=== PATIENT | male | born 1960 | race Caucasian/White ===

== ENCOUNTER 2018-07-03 18:34 | Inpatient (IN) ==
[2018-07-03] MEDS ORDERED: Naloxone 0.4 MG/ML INJ IVP PRN (22:53)
[2018-07-03] MEDS ORDERED: Acetaminophen 325 MG TABLET PO PRN (22:53)
[2018-07-03] MEDS ORDERED: *HR* Metoprolol 5 MG/5 ML VIAL IVP PRN (23:00)
[2018-07-03] MEDS ORDERED: traZODone 50 MG TABLET PO PRN (23:04)
[2018-07-03] MEDS ORDERED: *HR* LORazepam 2 MG/ML VIAL IVP PRN ×4 (23:12→23:23)
[2018-07-03] MEDS ORDERED: *HR* FentaNYL (PF) 100 MCG/2 ML VIAL IVP PRN (23:15)
--- NOTE | 2018-07-03 23:23 | Internal Med History&Physical ---
<Citlali Mendez - Last Filed: 07/04/18 01:07> Date of Encounter: 07/04/18 Time of Encounter: 23:15 Internal Medicine - H&P: HPI Chief complaint: nausea History of present illness: Mr. Poole is a 58 year old male with past medical history of insomnia, hypertension and alcohol abuse. He presented to to outside ED complaining of abdominal pain ongoing for the past 2 days. He reports 2 days ago he had a chicken sandwich in the next day he woke up with abdominal pain. He denies any change in his bowel habits and had a normal bowel movement this morning. He is complaining of nausea and decreased oral intake for the past 2 days with diffuse mild abdominal pain. He does report frequent urination, denies dysuria or incontinence. He reports daily alcohol intake of about 72 ounces of beer a day. She also reported drinking twice that amount on weekends. He denies any previous history of pancreatitis. He complained of cough which is chronic and unchanged for him and associated with his daily smoking. He denies any focal weakness and otherwise has no other complaints. An outside ED his sodium was noted to be 117 unsure of baseline as there are no labs to compare to. His white count was noted to be 13.8. No imaging were ordered. Past Med Surg Social Fam HX - Past Medical History Medical history: hypertension, other Additional medical history: bleeding ulcers Psychiatric history: no psych history - Past Surgical History Additional surgical history: Surgical intervention 10 years ago after a rib injury effecting the lungs - Social History Smoking Status: Current every day smoker Smokeless Tobacco Status: No Alcohol use: heavy, recent Drug use: none - Family History Mother Hx Family Endocrine Disorder: Yes (diabetes) Internal Medicine - H&P: Meds Lisinopril-HCTZ 20-12.5 [Prinzide 20-12.5] 1 tab PO BID 07/01/17 [History] Bismuth Subsalicylate [PEPTO-BISMOL (262mg/15mL) Susp] 1 each PO 5XD PRN 07/03/18 [History] Allergy/AdvReac Type Severity Reaction Status Date / Time No Known Allergies Allergy Verified 07/03/18 23:00 All Systems PM: A 10-system review of systems was performed and is negative for pertinent findings except as documented above in the HPI. - Constitutional Constitutional: chills, no fever(s), no malaise, no weakness - EENT Eyes: no change in vision, no loss of vision, no pain Nose, mouth and throat: no dysphagia, no nasal congestion, no odynophagia - Cardiovascular Cardiovascular ROS IM: no chest pain, no dyspnea, no dyspnea on exertion, no orthopnea, no paroxysmal nocturnal dyspnea - Respiratory Respiratory: cough (chronic, unchanged), no dyspnea, no dyspnea on exertion, no chest congestion - Gastrointestinal Gastrointestinal: abdominal pain, nausea, no constipation, no diarrhea, no dysphagia, no vomiting - Genitourinary Genitourinary ROS male: no dysuria, no hematuria, no urinary incontinence - Musculoskeletal Musculoskeletal ROS IM: back pain (chronic and unchanged), no numbness, no stiffness - Integumentary Integumentary IM: no erythema, no pruritus, no rash - Neurological Neurological ROS: no focal weakness, no numbness, no paresthesias, no vertigo - Psychiatric Psychiatric: no anxiety, no confusion, no depression - Endocrine Endocrine IM: cold intolerance, no fatigue, no flushing - Constitutional Vitals: Temp Pulse Resp BP Pulse Ox 98 F 89 14 159/104 99 07/03/18 22:25 07/03/18 23:00 07/03/18 23:00 07/03/18 23:00 07/03/18 23:00 Exam: Gen: Vitals noted. No acute distress. Appears comfortable. Eyes: Sclera icterus, moist conjunctivae; no lid-lag HENT: Atraumatic; oropharynx clear with moist mucous membranes and no mucosal ulcerations; normal hard and soft palate Neck: Trachea midline; supple, no thyromegaly or lymphadenopathy Cardiac: Regular rhythm with tachycardia, no murmur, +S1/S2. No JVD noted. Pulmonary: CTA bilaterally, no wheezes, rales or rhonchi, equal chest expansion Abdomen: soft, mild diffuse tenderness, no guarding. No masses or hepatosplenomegaly MSK: ROM intact, no joint swelling noted Extremities: no edema, nontender calf Skin: Normal temperature, turgor; no rash, ulcers or subcutaneous nodules Neuro: moves all extremities, no focal deficits. Psych: Appropriate mood and behavior. A&Ox3 Internal Med - H&P Results - Labs CBC & Chem 7: 07/03/18 23:38 - Assessment and Plan (1) Hyponatremia Current Visit: No Status: Acute Assessment and plan: Presented to the outside ED complaining of abdominal pain. Hyponatremia can be multifactorial given he is on lisinopril and HCTZ, vs beer potomania Noted to have sodium of 117, unknown baseline. Repeat BMP shows sodium of 129 No focal changes, Alert and oriented x3 Received 2.5 liters of normal saline at outside ED Repeat sodium upon admission is 129 -Clear liquid diet with 2 liter limitation -Hold home antihypertensives -Urine sodium and solutes pending -Repeat BMP in the morning (2) Pancreatitis Current Visit: No Status: Acute Assessment and plan: Concern for pancreatitis presented with abdominal pain, lipase noted to be 1800 outside facility Has mild abdominal pain at presentation to [facility] CT of the abdomen and pelvis pending -Ultrasound gallbladder pending -Lipids pending -Repeat amylase and lipase at 4 AM -Clear liquids at this time -If cannot tolerate clear liquids, nothing by mouth Qualifiers: Chronicity: acute Pancreatitis type: alcohol induced Acute pancreatitis complication: unspecified Qualified Code(s): K85.20 - Alcohol induced acute pancreatitis without necrosis or infection (3) Abdominal pain Current Visit: No Status: Acute Assessment and plan: Presented from outside ED complaining of abdominal pain onset on 07/02/18, could be secondary to acute pancreatitis. He reports eating a chicken sandwich on 07/01/18 consult nauseated thereafter. He has had decreased oral intake since the onset of nausea. Denies emesis or changes in bowel habits. At presentation to the outside ED lipase was noted to be 1800 -Nothing by mouth at this time -CT abdomen and pelvis pending -Lipids pending -Gallbladder ultrasound pending -Continue pain medication -Continue Zofran for nausea -Will hold antibiotics at this time depending on CT findings will make further recommendations Qualifiers: Abdominal location: generalized Qualified Code(s): R10.84 - Generalized abdominal pain (4) Insomnia Current Visit: Yes Status: Chronic Assessment and plan: Takes trazodone at home, will continue Qualifiers: Insomnia type: unspecified Qualified Code(s): G47.00 - Insomnia, unspecified (5) Hypertension Current Visit: Yes Status: Chronic Assessment and plan: History of hypertension at home takes lisinopril and hydrochlorothiazide Due to hyponatremia will hold home antihypertensives -Lopressor when necessary -We will need new antihypertensives on discharge, consider amlodipine Qualifiers: Hypertension type: essential hypertension Qualified Code(s): I10 - Essential (primary) hypertension (6) History of alcohol use Current Visit: Yes Status: Chronic Assessment and plan: History of alcohol use, reports drinking 72 ounces of beer daily and drinks twice that amount on weekends Drinking for the past 44 years Denies any previous history of pancreatitis or alcohol withdrawal -Alcohol withdrawal protocol ordered -Continue close monitoring (7) Tobacco use Current Visit: Yes Status: Acute Assessment and plan: Current every day smoker, smokes 1.5 pack per day [id number] history Hold nicotine at this time given tachycardia (8) DVT prophylaxis Current Visit: Yes Status: Acute Assessment and plan: Subcutaneous heparin - Time Spent With Patient Total time spent is greater than 50% in coordination of care (as documented) at patient's floor/unit and/or counseling patient: <Cl Scott - Last Filed: 07/04/18 03:23> Date of Encounter: 07/03/18 Time of Encounter: 23:45 - Constitutional Constitutional: no fever(s), no malaise, no night sweats - EENT Eyes: no blurry vision, no change in vision Ears: no ear pain Nose, mouth and throat: no sinus pressure, no sore throat - Cardiovascular Cardiovascular ROS IM: no chest pain, no dyspnea - Respiratory Respiratory: cough, no dyspnea, no hemoptysis, no chest congestion, no change in phlegm color - Gastrointestinal Gastrointestinal: abdominal pain, heartburn, nausea, no diarrhea, no hematemesis, no hematochezia, no melena, no vomiting - Genitourinary Genitourinary ROS male: no dysuria, no flank pain, no hematuria - Musculoskeletal Musculoskeletal ROS IM: no arthralgias - Integumentary Integumentary IM: no rash, no jaundice - Neurological Neurological ROS: no disequilibrium, no dizziness, no focal weakness, no frequent falls, no headache(s) - Psychiatric Psychiatric: no anxiety, no depression - Endocrine Endocrine IM: no polydipsia, no polyuria - Allergic/Immunologic Allergic/Immunologic: GI upset with certain foods - Constitutional Vitals: Temp Pulse Resp BP Pulse Ox 98.4 F 89 15 175/142 97 07/03/18 23:49 07/04/18 02:00 07/04/18 02:00 07/04/18 02:00 07/04/18 02:00 General appearance: Present: cooperative, A&O X 3, pleasant, no acute distress, answers questions appropriately - Head Head exam: Present: atraumatic, normal inspection - Eye Eye exam: Present: PERRL - ENT ENT exam: Present: mucous membranes dry, normal exam, normal oropharynx - Neck Neck exam general surgery: Present: full ROM, supple, trachea midline. Absent: lymphadenopathy, tenderness, nuchal rigidity, thyromegaly - Respiratory Respiratory exam: Present: prolonged expiratory phase, rhonchi. Absent: chest wall tenderness, rales, respiratory distress, wheezes - Cardiovascular Cardiovascular exam: Present: RRR, +S1, +S2. Absent: diastolic murmur, systolic murmur - GI/Abdominal GI/Abdominal exam: Present: hypoactive bowel sounds, soft, tenderness (epigastric), no peritoneal signs. Absent: guarding, hepatomegaly, mass, rebound, splenomegaly - Extremities Exam Extremities exam: Present: full ROM, normal capillary refill, warm, radial pulses palpable and symmetrical. Absent: calf tenderness, pedal edema, tenderness Additional comments: atrophy of muscles - Back Exam Back exam: Absent: CVA tenderness (L), CVA tenderness (R) - Neurological Exam Neurological exam: Present: alert, CN II-XII intact, oriented X3, no focal deficits, strengths equal and symetr throughout - Psychiatric Psychiatric exam: Present: normal affect, normal mood - Skin Skin exam: Present: dry, intact, warm Internal Med - H&P Results - Labs CBC & Chem 7: 07/03/18 23:38 Labs: BMP 07/03/18 23:38 Sodium 129 L D Potassium 3.7 Chloride 94 L Carbon Dioxide 27 BUN 4 L Creatinine 0.37 L Glucose 111 H Calcium 8.6 - Impressions ITS Impressions Abdomen/Pelvis CT 07/04/18 00:06 IMPRESSION: Paraduodenal (groove) pancreatitis with moderate surrounding peripancreatic inflammatory stranding, duodenal wall thickening, 3.8 cm acute peripancreatic fluid collection and mild common bile duct and pancreatic duct dilatation. 2.4 cm cyst at the pancreatic head is most suspicious for an intraductal papillary mucinous neoplasm (IPMN). Surrounding calcifications likely reflects sequela of chronic pancreatitis. (Very) heavy aortoiliac atherosclerotic calcifications with areas of severe luminal narrowing along the distal aorta and near complete versus complete luminal narrowing of the right common iliac artery. D/ / Eugene Helton / Eugene Helton Interpreting Provider: Eugene Helton - Time Spent With Patient Total time spent is greater than 50% in coordination of care (as documented) at patient's floor/unit and/or counseling patient: - Attending Attestation I discussed the patient COUNCIL, past medical history, review of systems, lab data, imaging data, and exam findings with Dr. Mendez. I then saw and examined patient independently in ICU as well. Patient was transferred to our ICU from [facility] ER for concerns of acute hyponatremia and pancreatitis. Prior to transfer, he received 3 L of IV fluids at [place] [facility]. Once he arrived to our ICU, Dr. Mendez stopped his IV fluids immediately. We wer e concerned about overcorrection of his hyponatremia. We repeated STAT labs and sodium is now 129, which was corrected rapidly. Presently, patient has no neurologic effects or side effects. His only complaint and issue is his epigastric pain. He does drink chronic and excessive alcohol. I suspect this is the culprit of his pancreatitis. However, he still has a gallbladder and he's had some food intolerance recently. We will monitor him closely in ICU and likely transition out of ICU if he remains stable. We will watch his chemistries closely. He will receive no more IV fluids and we will allow him to drink clear liquids sparingly if he can tolerate it from a GI standpoint. He will be maintained on CIWA protocol for possible alcohol withdrawal. Regarding his hyponatremia, he is on a thiazide diuretic, which can also be contributing to his hyponatremia. This will be withheld for now as well. Other than my comments above and documented exam findings, I agree with Dr. Mendez's assessment and plan.
[2018-07-03] MEDS ORDERED: Ondansetron 4 MG/2 ML VIAL IVP PRN (23:40)
[2018-07-04 00:06] LABS: Magnesium 1.8 mg/dL (1.6-2.6); Phosphorous 3.3 mg/dL (2.7-4.5)
[2018-07-04 00:11] LABS: BUN/Creatinine Ratio 11 (6-26); Blood Urea Nitrogen 4 mg/dL (6-20); Calcium 8.6 mg/dL (8.6-10.3); Carbon Dioxide 27 mEq/L (23-29); Chloride 94 mEq/L (98-107); Glucose 111 mg/dL (70-105); Osmolality,Calculated 266 (280-300); Potassium 3.7 mEq/L (3.5-5.1); Sodium 129 mEq/L (136-145); eGFR For Non-African Americans > 60 (> 60)
[2018-07-04] MEDS ORDERED: *HR* HYDROcodone/Acet 5/325 mg TABLET PO PRN (00:31)
[2018-07-04 06:09] LABS: Basophils # 0.1 K/mcL (0.0-0.2); Basophils % 0.6 %; Eosinophils # 0.7 K/mcL (0.0-0.6); Eosinophils % 5.8 %; Hematocrit 40.4 % (37.5-50.1); Hemoglobin 13.8 g/dL (12.9-16.9); Immature Granulocytes % 0.4 % (0-4); Lymphocytes # 1.5 K/mcL (0.6-4.6); Lymphocytes % 12.7 %; Mean Corpuscular HGB Conc 34.2 g/dL (31.6-35.5); Mean Corpuscular Hemoglobin 30.1 pg (28.0-33.3); Monocytes % 8.3 %; Neutrophils # 8.6 K/mcL (1.6-8.9); Platelet Count 238 K/mcL (140-400); Red Blood Count 4.59 M/mcL (4.19-5.50); Red Cell Distribution Width 13.5 % (11.5-14.5); Segmented Neutrophils % 72.2 %
[2018-07-04 06:34] LABS: Carbon Dioxide 23 mEq/L (23-29); Chloride 95 mEq/L (98-107); Potassium 3.2 mEq/L (3.5-5.1); Sodium 127 mEq/L (136-145)
[2018-07-04 06:43] LABS: Amylase 389 Units/L (29-103); BUN/Creatinine Ratio 14 (6-26); Blood Urea Nitrogen 5 mg/dL (6-20); Calcium 8.9 mg/dL (8.6-10.3); Chol/HDL Ratio 1.7 (0-4.9); Cholesterol 137 mg/dL (< 200); Glucose 88 mg/dL (70-105); HDL Cholesterol 81 mg/dL (40-59); LDL Cholesterol,Calculated 45 mg/dL (0-99); Magnesium 1.9 mg/dL (1.6-2.6); Osmolality,Calculated 261 (280-300); Thyroid Stimulating Hormone 5.465 mcIU/mL (0.340-5.600); Triglycerides 56 mg/dL (< 150); eGFR For Non-African Americans > 60 (> 60)
[2018-07-04 06:57] LABS: Lipase 1764 Units/L (11-82)
--- NOTE | 2018-07-04 07:37 | Event Note ---
Date of Encounter: 07/04/18 Time of Encounter: 07:35 I received sign out from night team regarding Mr Zulema. His sodium level 127 a overcorrection due to 3L NS he received at [place]. I have discussed with dr Nguyen of nephro. Pt requires cont stay in ICU, q1hr Na checks, 500 cc bolus D5W followed by 125 cc/hr to begin with. Goal Na level 121-123. Dr Dominguez on at 8 am and will be consulting on pt today. I have communicated plan to [employer] IN[employer]STIGATION UNIT INVESTIGATOR. Orders in place. q 4h neuro checks.
[2018-07-04] MEDS ORDERED: D5% in Water 1,000 ML IVC SCH ×2 (07:45→18:08)
[2018-07-04] MEDS ORDERED: D5% in Water 500 ML IVC SCH (07:45)
[2018-07-04] MEDS: *HR* HYDROcodone/Acet 5/325 mg TABLET PO PRN ×2 (07:56→21:18)
[2018-07-04] MEDS: *HR* Metoprolol 5 MG/5 ML VIAL IVP PRN ×2 (08:11→18:17)
--- NOTE | 2018-07-04 09:41 | Internal Med Progress Note ---
<Gerhard Lora - Last Filed: 07/04/18 09:41> Hospitalist Progress Note - Encounter Date of Encounter: 07/04/18 - Exam Vitals: Temp Pulse Resp BP Pulse Ox 97.9 F 80 14 139/92 97 07/04/18 09:05 07/04/18 09:00 07/04/18 09:00 07/04/18 09:00 07/04/18 09:00 - Time Spent with Patient Total time spent is greater than 50% in coordination of care (as documented) at patient's floor/unit and/or counseling patient: Internal Medicine: Result - Labs CBC & Chem 7: 07/04/18 05:38 07/04/18 07:58 Labs: Short CBC 07/04/18 Range/Units 05:38 WBC 12.0 H (4.3-11.1) K/mcL Hgb 13.8 (12.9-16.9) g/dL Hct 40.4 (37.5-50.1) % Plt Count 238 (140-400) K/mcL Neutrophils # 8.6 (1.6-8.9) K/mcL BMP 07/03/18 07/04/18 07/04/18 23:38 05:38 07:58 Sodium 129 L D 127 L 128 L Potassium 3.7 3.2 L Chloride 94 L 95 L Carbon Dioxide 27 23 BUN 4 L 5 L Creatinine 0.37 L 0.36 L Glucose 111 H 88 Calcium 8.6 8.9 - Impressions Impressions Abdomen/Pelvis CT 07/04/18 00:06 IMPRESSION: Paraduodenal (groove) pancreatitis with moderate surrounding peripancreatic inflammatory stranding, duodenal wall thickening, 3.8 cm acute peripancreatic fluid collection and mild common bile duct and pancreatic duct dilatation. A 2.4 cm cyst at the pancreatic head is most suspicious for an intraductal papillary mucinous neoplasm (IPMN). Surrounding calcifications likely reflects sequela of chronic pancreatitis. (Very) heavy aortoiliac atherosclerotic calcifications with areas of severe luminal narrowing along the distal aorta and near complete versus complete luminal narrowing of the right common iliac artery. D/ / 07/04/2018 07:09:27 Eugene Helton / [email or web address] Interpreting Provider: Eugene Helton Consult Discharge Plan - Plan Referrals: NONE,PCP [Primary Care Provider] - <Alexandra Watts - Last Filed: 07/04/18 12:13> Hospitalist Progress Note - Encounter Date of Encounter: 07/04/18 - Exam Vitals: Temp Pulse Resp BP Pulse Ox 97.7 F 82 20 148/122 99 07/04/18 11:40 07/04/18 11:00 07/04/18 11:00 07/04/18 11:00 07/04/18 11:00 - Time Spent with Patient Total time spent is greater than 50% in coordination of care (as documented) at patient's floor/unit and/or counseling patient: Internal Medicine: Result - Labs CBC & Chem 7: 07/04/18 05:38 07/04/18 09:15 Labs: Short CBC 07/04/18 Range/Units 05:38 WBC 12.0 H (4.3-11.1) K/mcL Hgb 13.8 (12.9-16.9) g/dL Hct 40.4 (37.5-50.1) % Plt Count 238 (140-400) K/mcL Neutrophils # 8.6 (1.6-8.9) K/mcL BMP 07/03/18 07/04/18 07/04/18 23:38 05:38 07:58 Sodium 129 L D 127 L 128 L Potassium 3.7 3.2 L Chloride 94 L 95 L Carbon Dioxide 27 23 BUN 4 L 5 L Creatinine 0.37 L 0.36 L Glucose 111 H 88 Calcium 8.6 8.9 07/04/18 09:15 Sodium 129 L Potassium Chloride Carbon Dioxide BUN Creatinine Glucose Calcium - Impressions Impressions Abdomen/Pelvis CT 07/04/18 00:06 IMPRESSION: Paraduodenal (groove) pancreatitis with moderate surrounding peripancreatic inflammatory stranding, duodenal wall thickening, 3.8 cm acute peripancreatic fluid collection and mild common bile duct and pancreatic duct dilatation. A 2.4 cm cyst at the pancreatic head is most suspicious for an intraductal papillary mucinous neoplasm (IPMN). Surrounding calcifications likely reflects sequela of chronic pancreatitis. (Very) heavy aortoiliac atherosclerotic calcifications with areas of severe luminal narrowing along the distal aorta and near complete versus complete luminal narrowing of the right common iliac artery. D/ / 07/04/2018 07:09:27 Eugene Helton / [email or web address] Interpreting Provider: Eugene Helton - Attending Attestation I examined this patient and my medical decision-making was reviewed with the Resident Physician Dr Lora. I agree with the documented findings, disposition and treatment plan as described except to the extent set forth below. Mr Poole is admitted with hyponatremia and pancreatitis. Awake, alert, resting in bed, no family present. He denies confusion, + fatigue, no weakness/numbness, headache or vision changes. Epigastric pain is non radiating and somewhat improved. no n/v/d. Deneis fevers or chills. no cough or sob. gen- alert, awake,appears stated age eyes- pupils equal round cv- reg rate and rhythm, normal s1,s2, no murmurs appreciated, no le edema lungs- ctabl, no wheezing, rhonchi or crackles, normal resp effort on room air abd- soft, tender episgastrium, no rigidity, no guarding, , non distended, + bs neuro- AAOx3, CN grossly intact, no focal deficits Hyponatremia, chornicity cannot be determined as no prior labs and pt unsure suspect acute on chronic hypovolemic-euvolemic hyponatremia multifactorial- medication HCTZ, insensible water loss sweating, intake of free water and beer Overcorrection of Sodium related to NS boluses he received prior to admission to this hospital -pt in icu as overflow as step down full -na 129 this morning, nephro consulted as noted in event note, cont D5W, serial q4h checks as d/w Dr Cuevas, goal Na 121-123 as soon as possible today, cont neuro checks -urine studies reviewed Leukocytosis suspect 2/2 pancreatitis -ua normal , cT a/p without findings in base of lungs and no s/s of resp infection at this time -cont pancreatitis treatment as below Pancreatitis, suspected etoh related -check rUQ US, cont IVFs, clears, GI following, prn pain control Hypokalemia- replete PO and monitor etoh abuse, not in withdrawal- cont tele, ciwa, PO supplementation as cannot give banana bag with NS at this time further diagnoses and plan as noted by resident to step down when bed available remains appropriate.
--- NOTE | 2018-07-04 11:17 | Nephrology Consult Note ---
Date of Encounter: 07/04/18 Time of Encounter: 09:00 Assessment and Plan (1) Hyponatremia Current Visit: No Status: Acute Multifactorial given he is on lisinopril and HCTZ at home vs beer potomania vs polydypsia. Na of 117 with overcorrection within 24 hr period to 129. Received 2.5 liters of normal saline at outside ED. No focal changes, Alert and oriented x3. Current Na of 127. Goal for today is Na level 121-123. - q4h neuro checks - Space Na checks to q4H. - Hold home antihypertensives. - Continue D5% 125 ml/hr. - If sodium goal continues to not be met, consider starting DDAVP. (2) Hypertension Current Visit: Yes Status: Chronic BP at 144/75. At home, takes lisinopril and hydrochlorothiazide - Due to hyponatremia, continue to hold home antihypertensives - Lopressor when necessary - Will need new antihypertensives on discharge. Consider amlodipine. Qualifiers: Hypertension type: essential hypertension Qualified Code(s): I10 - Essential (primary) hypertension (3) Pancreatitis Current Visit: No Status: Acute Qualifiers: Chronicity: acute Pancreatitis type: alcohol induced Acute pancreatitis complication: unspecified Qualified Code(s): K85.20 - Alcohol induced acute pancreatitis without necrosis or infection (4) History of alcohol use Current Visit: Yes Status: Chronic (5) Abdominal pain Current Visit: No Status: Acute Qualifiers: Abdominal location: generalized Qualified Code(s): R10.84 - Generalized abdominal pain (6) Tobacco use Current Visit: Yes Status: Acute History of Present Illness - Reason for Consult Consult date: 07/04/18 hyponatremia - Chief Complaint Abdominal Pain - History of Present Illness 58 YO M with a PMH of insomnia, hypertension and alcohol abuse who presented to an outside ED c/o abdominal pain for 2 days. He reports decreased PO intake. Admitting to nausea. Reports urinary frequency. Denies dysuria or incontinence. Alcohol intake of about 72 ounces of beer a day. Labs showed an elevated lipase of 1800 and elevated amylase concerning for pancreatitis. Abdominal CT showed cyst on pancreas suspicious for intraductal papillary mucinous neoplasm (IPMN) with surrounding calcifications likely reflects sequela of chronic pancreatitis. Neprhology consulted due to a presentation of a sodium of 117 (unknown baseline) at outside facilty. Repeat sodium upon admission was 129. His sodium level 127 was an overcorrection due to 3L NS he received at [place]. Received q1hr Na checks, 500 cc bolus D5W followed by 125 cc/hr to begin with. When seen this morning, patient says that he has had some issues with dehydration recently. As a results, he has been drinking alot of water continuously. He denies any focal weakness. Denies any chest pain or SOB. Denies any blurring of vision. He does admit to some abdominal discomfort that is diffuse. Denies any swelling in his LE. Past Med Surg Social Fam HX - Past Medical History Medical history: hypertension, other Additional medical history: bleeding ulcers , ETOH Psychiatric history: no psych history - Past Surgical History Additional surgical history: Surgical intervention 10 years ago after a rib injury effecting the lungs - Social History Smoking Status: Current every day smoker Packs per day: 7.5 Smokeless Tobacco Status: No Alcohol use: heavy, recent Drug use: none - Family History Mother Hx Family Endocrine Disorder: Yes (diabetes) Medications and Allergies Lisinopril-HCTZ 20-12.5 [Prinzide 20-12.5] 1 tab PO BID 07/01/17 [History] Bismuth Subsalicylate [PEPTO-BISMOL (262mg/15mL) Susp] 1 each PO 5XD PRN 07/03/18 [History] Allergy/AdvReac Type Severity Reaction Status Date / Time No Known Allergies Allergy Verified 07/03/18 23:00 Review of Systems Constitutional: excessive sweating, weight loss, no fever(s) Nose, mouth and throat: no dizziness Cardiovascular: no chest pain, no dyspnea, no edema, no leg edema, no pedal edema Respiratory: no dyspnea Gastrointestinal: abdominal pain (mild- diffuse), nausea, no diarrhea, no vomiting Genitourinary Male: urinary frequency, no dysuria, no urinary incontinence Neurological: no confusion, no convulsions, no numbness, no paresthesias, no sensory deficit Psychiatric: as per HPI Exam - Vital Signs Vital signs: Initial Vital Signs Temp Pulse Resp BP Pulse Ox 98 F 93 14 173/104 99 07/03/18 22:25 07/03/18 22:25 07/03/18 22:25 07/03/18 22:25 07/03/18 22:25 Vital Signs - Last 8 Hours Temp Pulse Resp BP Pulse Ox 05/17/19 09:05 97.9 F 07/04/18 09:00 80 14 139/92 97 07/04/18 08:02 76 07/04/18 07:00 73 12 144/75 96 07/04/18 06:00 72 10 152/92 96 07/04/18 05:00 69 11 156/65 98 07/04/18 04:00 76 14 120/84 98 Intake and Output 07/03/18 07/04/18 07/04/18 23:59 07:59 15:59 Intake Total 500 / 500 Output Total 0 / 0 200 / 200 Balance 0 / 0 -200 / 300 500 / 300 Intake: IV Fluids 500 / 500 Dextrose 5% 500 ML @ 999 mls/hr 500 / 500 IVC .Q31M KALIE Rx#:[id number] Output: Urine 0 / 0 200 / 200 Other: Weight 51.2 kg Blood Glucose* 113 - General Appearance General appearance: well-developed, well-nourished, appears started age EENT: mucous membranes moist Neck: no JVD Respiratory: clear Cardiology: no murmurs, no rub, no gallops, no edema, regular rate, regular rhythm, normal S1, normal S2 Additional Comments: No pedal edema. Pedal pulses intact and symmetrical. Gastrointestinal: normoactive bowel sounds, tenderness (mild diffuse tenderness with deep palpation), no guarding, no organomegaly, no masses Integumentary: warm and dry Neurologic: no focal deficit, no asterixis, alert and oriented x3, strength 5/5 Musculoskeletal: no deformities, no cyanosis, no clubbing Results - Lab Results 07/04/18 05:38 07/04/18 09:15 Most recent lab results 07/03/18 07/03/18 07/04/18 23:38 23:38 02:42 Calcium 8.6 Phosphorus 3.3 Magnesium 1.8 Urine Sodium 91.0 07/04/18 05:38 Calcium 8.9 Phosphorus Magnesium 1.9 Urine Sodium Consult Discharge Plan - Plan Referrals: NONE,PCP [Primary Care Provider] -
--- NOTE | 2018-07-04 12:30 | Gastroenterology Consult Note ---
<Ignacio Crowell Ana Paula - Last Filed: 07/04/18 12:28> Date of Encounter: 07/04/18 Time of Encounter: 10:10 - Assessment and plan (1) Pancreatitis Current Visit: No Status: Acute Assessment and plan: Lipase on admission 1764. CT A/P shows paraduodenal pancreatitis, 2.4 cm cyst at the pancreatic head is most suspicious for an intraductal papillary mucinous neoplasm (IPMN). Abdominal pain improving. Continue IV fluids. Continue clear liquid diet, slowly advance as tolerated. Continue pain control and anti-emetics. Dr. Tompkins to review imaging today. Once stable, will plan for EUS to assess pancreatic head cyst/possible IPMN. Qualifiers: Chronicity: acute Pancreatitis type: alcohol induced Acute pancreatitis complication: unspecified Qualified Code(s): K85.20 - Alcohol induced acute pancreatitis without necrosis or infection (2) History of alcohol use Current Visit: Yes Status: Chronic Assessment and plan: Abstain from all forms of alcohol. - Time Spent With Patient Total time spent is greater than 50% in coordination of care (as documented) at patient's floor/unit and/or counseling patient: GI History of Present Illness - Data of Consult Patient: new to practice Consult date: 07/04/18 Requesting Physician: Alexandra Watts - Consult Narrative Reason for consult: Acute pancreatitis History of present illness: Mr. Pooel is a 58 year old male with PMHx of HTN and alcohol abuse who presented to outside ED with abdominal pain for 2 days with associated nausea and decreased oral intake. He admits to consuming about 72 oz of beer daily and twice that amount on weekends. At outside ED sodium 117 and on arrival here sodium 129. Lipase on admission 1764. CT A/P shows paraduodenal pancreatitis, 2.4 cm cyst at the pancreatic head is most suspicious for an intraductal papillary mucinous neoplasm (IPMN). Procedures: None NSAIDs: None Anticoagulation: None Past Med Surg Social Fam HX - Past Medical History Medical history: hypertension, other Additional medical history: bleeding ulcers , ETOH Psychiatric history: no psych history - Past Surgical History Additional surgical history: Surgical intervention 10 years ago after a rib injury effecting the lungs - Social History Smoking Status: Current every day smoker Packs per day: 7.5 Smokeless Tobacco Status: No Alcohol use: heavy, recent Drug use: none - Family History Mother Hx Family Endocrine Disorder: Yes (diabetes) - Gastrointestinal Gastrointestinal: Present: as per HPI - Constitutional Constitutional: as per HPI - EENT Eyes: as per HPI Ears: Present: as per HPI Nose, mouth and throat: Present: as per HPI - Cardiovascular Cardiovascular ROS: Present: as per HPI - Respiratory Respiratory IM: Present: as per HPI - Genitourinary Genitourinary: Absent: change in color, Urinary frequency - Neurological ROS Neurological GI: Present: as per HPI - Hematologic/Lymphatic Hematologic/Lymphatic pediatric: Present: as per HPI - Musculoskeletal Musculoskeletal ROS GI: Present: as per HPI - Integumentary Integumentary GI: Present: as per HPI - Psychiatric ROS Psychiatric GI: Present: as per HPI - Endocrine Endocrine IM: Present: as per HPI - Constitutional Vitals: Temp Pulse Resp BP Pulse Ox 97.7 F 82 20 148/122 99 07/04/18 11:40 07/04/18 11:00 07/04/18 11:00 07/04/18 11:00 07/04/18 11:00 General appearance: Present: cooperative, A&O X 3, no acute distress, answers questions appropriately - Head Head exam: Present: atraumatic, normocephalic - Eye Eye exam: Present: normal appearance, sclera anicteric - ENT ENT exam: Present: mucous membranes moist - Neck Neck exam general surgery: Present: normal inspection, trachea midline - Respiratory Respiratory exam: Present: CTAB. Absent: rales, rhonchi - Cardiovascular Cardiovascular exam: Present: RRR, +S1, +S2 - GI/Abdominal GI/Abdominal exam: Present: soft, tenderness (epigastric tenderness), no peritoneal signs. Absent: distended, firm, guarding - Rectal Rectal exam: Present: deferred - Extremities Exam Extremities exam: Present: warm - Neurological Exam Neurological exam: Present: no focal deficits - Psychiatric Psychiatric exam: Present: normal affect, normal mood - Skin Skin exam: Present: dry, intact, normal color, warm Results - Labs CBC & Chem 7: 07/04/18 05:38 07/04/18 09:15 Labs: Last Result 07/04/18 05:38 Calcium 8.9 Triglycerides 56 Entire Visit 07/04/18 07/04/18 05:38 05:38 Hgb 13.8 Hct 40.4 Amylase 389 H Lipase 1764 H - Impressions Impressions Abdomen/Pelvis CT 07/04/18 00:06 IMPRESSION: Paraduodenal (groove) pancreatitis with moderate surrounding peripancreatic inflammatory stranding, duodenal wall thickening, 3.8 cm acute peripancreatic fluid collection and mild common bile duct and pancreatic duct dilatation. A 2.4 cm cyst at the pancreatic head is most suspicious for an intraductal papillary mucinous neoplasm (IPMN). Surrounding calcifications likely reflects sequela of chronic pancreatitis. (Very) heavy aortoiliac atherosclerotic calcifications with areas of severe luminal narrowing along the distal aorta and near complete versus complete luminal narrowing of the right common iliac artery. D/ / 07/04/2018 07:09:27 Eugene Helton / [email or web address] Interpreting Provider: Eugene Helton Consult Discharge Plan - Plan Referrals: NONE,PCP [Primary Care Provider] - <Gretta Tompkins - Last Filed: 07/04/18 13:50> Date of Encounter: 07/04/18 Time of Encounter: 14:00 - Time Spent With Patient Total time spent is greater than 50% in coordination of care (as documented) at patient's floor/unit and/or counseling patient: GI History of Present Illness - Data of Consult Requesting Physician: Alexandra Watts - Consult Narrative History of present illness: Mr. Poole is a 58 year old male - Constitutional Vitals: Temp Pulse Resp BP Pulse Ox 97.7 F 76 20 156/86 97 07/04/18 11:40 07/04/18 12:28 07/04/18 12:27 07/04/18 12:27 07/04/18 12:27 Results - Labs CBC & Chem 7: 07/04/18 05:38 07/04/18 09:15 Labs: Last Result 07/04/18 05:38 Calcium 8.9 Triglycerides 56 Entire Visit 07/04/18 07/04/18 05:38 05:38 Hgb 13.8 Hct 40.4 Amylase 389 H Lipase 1764 H - Impressions Impressions Abdomen/Pelvis CT 07/04/18 00:06 IMPRESSION: Paraduodenal (groove) pancreatitis with moderate surrounding peripancreatic inflammatory stranding, duodenal wall thickening, 3.8 cm acute peripancreatic fluid collection and mild common bile duct and pancreatic duct dilatation. A 2.4 cm cyst at the pancreatic head is most suspicious for an intraductal papillary mucinous neoplasm (IPMN). Surrounding calcifications likely reflects sequela of chronic pancreatitis. (Very) heavy aortoiliac atherosclerotic calcifications with areas of severe luminal narrowing along the distal aorta and near complete versus complete luminal narrowing of the right common iliac artery. D/ / 07/04/2018 07:09:27 Eugene Helton / [email or web address] Interpreting Provider: Eugene Helton - Attending Attestation I have personally performed a face to face evaluation on this patient. I have reviewed and agree with the care plan. History and Exam by me shows: Pt seen currently denies abdominal pain on examination alert and awake does has mild epigastric tenderness. Assessment: Patient with chronic pancreatitis with peripancreatic fluid collection. #2 pancreatic head cyst old recommendation: No drinking IV fluid pain control follow-up with GI as an outpatient for the workup of the pancreatic cyst
--- NOTE | 2018-07-04 12:51 | Internal Med Progress Note ---
<Gerhard Lora - Last Filed: 07/04/18 14:26> Hospitalist Progress Note - Encounter Date of Encounter: 07/04/18 Time of Encounter: 08:45 - Subjective Interval History: Patient was seen and examined at bedside this morning; states that he is feeling well today. He states that his abdominal pain has largely resolved. He denies having any nausea or vomiting this morning. On physical examination, he does have some mild tenderness in the epigastric area on palpation. GI and nephrology are currently following. One concern is patients possible overcorrection of hyponatremia. His sodium on initial presentation was 117; received 2.5 L of normal saline; subsequent sodium level was 129. Due to this, every 4 sodium checks have been ordered, as well as a 1 L bolus of D5 percent in water; repeat sodium today was 132. Spoke with Dr. Cuevas, who recommended starting DDAVP at this time. A one-time dose of 2mcg subcutaneous has been ordered; will continue to closely follow patients sodium levels and assess his neurological status. - Exam Vitals: Temp Pulse Resp BP Pulse Ox 97.7 F 76 20 156/86 97 07/04/18 11:40 07/04/18 12:28 07/04/18 12:27 07/04/18 12:27 07/04/18 12:27 Exam: General: A&O X3, conversant, no acute distress Head: atraumatic, normocephalic Eye: PERRL, EOMI, conjuntiva pink, sclera anicteric Neck: Supple, trachea midline; No lymphadenopathy Respiratory: CTAB. No accessory muscle use, wheezes, rales, or rhonchi Cardiovascular: RRR, +S1, +S2; no murmurs, rubs, gallops Abdomen: Mild tenderness to palpation in the epigastric area; no rebound, distention, or guarding Extremities: warm, radial pulses palpable and symmetrical Neurological: No focal deficits noted Psychiatric: Normal affect, normal mood Skin: Dry, intact - Assessment and Plan (1) Hyponatremia Current Visit: No Status: Acute Assessment and Plan: - Unknown etiology at this time; likely multifactorial: Beer pot of ami, insensible losses due to vomiting/sweating, use of lisinopril and hydrochlorothiazide - He reports a daily alcohol intake up proximally 72 ounces of beer per day; also reported a recent history of mowing the lawn outside; possible cause of dehydration - Initial sodium of 117; baseline unknown - A she received 2.5 L of normal saline at an outside ED; concern at this time is possible overcorrection - Sodium levels have been as follows: 129, 127, 128, 129, 132 - Patient was given a 1000 mL bolus of D5 percent in water at 125 mL per hour - Despite this, last sodium level was 132 Plan: - Spoke with nephrology; recommend starting DDAVP; a one-time dose of 2mcg SQ has been administered; will recheck sodium levels and reassess - Sodium levels will be drawn every 4 hours; continue neuro checks (2) Pancreatitis Current Visit: No Status: Acute Assessment and Plan: - Initially presented with abdominal pain, lipase noted to be 1800 outside facility - Lipase drawn at [place] was 1764 - On initial presentation, patient described nausea and periumbilical abdominal pain - Today, his nausea has resolved, and has mild tenderness to palpation in the periumbilical region - No rebound, guarding, or radiation of pain Plan: - Clear liquid diet; will advance as tolerated - Right upper quadrant ultrasound is currently pending - GI is currently following; would appreciate further recommendations - Zofran when necessary for nausea control (3) History of alcohol use Current Visit: Yes Status: Chronic Assessment and Plan: - Patient has a known history of alcohol use; admits to drinking 72 ounces appear per day; increase his intake on weekends - CIWA protocol (4) Hypertension Current Visit: Yes Status: Chronic Assessment and Plan: - Patients home lisinopril hydrochlorothiazide is being held at this time due to hyponatremia - Metoprolol as needed (5) Insomnia Current Visit: Yes Status: Chronic Assessment and Plan: - Continue home trazodone (6) DVT prophylaxis Current Visit: Yes Status: Acute Assessment and Plan: - Heparin SQ - Time Spent with Patient Total time spent is greater than 50% in coordination of care (as documented) at patient's floor/unit and/or counseling patient: Internal Medicine: Result - Labs CBC & Chem 7: 07/04/18 05:38 07/04/18 13:00 Labs: Short CBC 07/04/18 Range/Units 05:38 WBC 12.0 H (4.3-11.1) K/mcL Hgb 13.8 (12.9-16.9) g/dL Hct 40.4 (37.5-50.1) % Plt Count 238 (140-400) K/mcL Neutrophils # 8.6 (1.6-8.9) K/mcL BMP 07/03/18 07/04/18 07/04/18 23:38 05:38 07:58 Sodium 129 L D 127 L 128 L Potassium 3.7 3.2 L Chloride 94 L 95 L Carbon Dioxide 27 23 BUN 4 L 5 L Creatinine 0.37 L 0.36 L Glucose 111 H 88 Calcium 8.6 8.9 07/04/18 09:15 Sodium 129 L Potassium Chloride Carbon Dioxide BUN Creatinine Glucose Calcium - Impressions Impressions Abdomen/Pelvis CT 07/04/18 00:06 IMPRESSION: Paraduodenal (groove) pancreatitis with moderate surrounding peripancreatic inflammatory stranding, duodenal wall thickening, 3.8 cm acute peripancreatic fluid collection and mild common bile duct and pancreatic duct dilatation. A 2.4 cm cyst at the pancreatic head is most suspicious for an intraductal papillary mucinous neoplasm (IPMN). Surrounding calcifications likely reflects sequela of chronic pancreatitis. (Very) heavy aortoiliac atherosclerotic calcifications with areas of severe luminal narrowing along the distal aorta and near complete versus complete luminal narrowing of the right common iliac artery. D/ / 07/04/2018 07:09:27 Eugene Helton / [email or web address] Interpreting Provider: Eugene Helton Consult Discharge Plan - Plan Referrals: NONE,PCP [Primary Care Provider] - <Alexandra Watts - Last Filed: 07/04/18 16:04> Hospitalist Progress Note - Encounter Date of Encounter: 07/04/18 - Exam Vitals: Temp Pulse Resp BP Pulse Ox 97.7 F 76 20 156/86 97 07/04/18 11:40 07/04/18 12:28 07/04/18 12:27 07/04/18 12:27 07/04/18 12:27 - Time Spent with Patient Total time spent is greater than 50% in coordination of care (as documented) at patient's floor/unit and/or counseling patient: Internal Medicine: Result - Labs CBC & Chem 7: 05/17/19 05:38 07/04/18 13:00 Labs: Short CBC 07/04/18 Range/Units 05:38 WBC 12.0 H (4.3-11.1) K/mcL Hgb 13.8 (12.9-16.9) g/dL Hct 40.4 (37.5-50.1) % Plt Count 238 (140-400) K/mcL Neutrophils # 8.6 (1.6-8.9) K/mcL BMP 07/03/18 07/04/18 07/04/18 23:38 05:38 07:58 Sodium 129 L D 127 L 128 L Potassium 3.7 3.2 L Chloride 94 L 95 L Carbon Dioxide 27 23 BUN 4 L 5 L Creatinine 0.37 L 0.36 L Glucose 111 H 88 Calcium 8.6 8.9 07/04/18 07/04/18 09:15 13:00 Sodium 129 L 132 L Potassium Chloride Carbon Dioxide BUN Creatinine Glucose Calcium - Impressions Impressions Abdomen/Pelvis CT 07/04/18 00:06 IMPRESSION: Paraduodenal (groove) pancreatitis with moderate surrounding peripancreatic inflammatory stranding, duodenal wall thickening, 3.8 cm acute peripancreatic fluid collection and mild common bile duct and pancreatic duct dilatation. A 2.4 cm cyst at the pancreatic head is most suspicious for an intraductal papillary mucinous neoplasm (IPMN). Surrounding calcifications likely reflects sequela of chronic pancreatitis. (Very) heavy aortoiliac atherosclerotic calcifications with areas of severe luminal narrowing along the distal aorta and near complete versus complete luminal narrowing of the right common iliac artery. D/ / 07/04/2018 07:09:27 Eugene Helton / [email or web address] Interpreting Provider: Eugene Helton Echocardiogram 07/04/18 10:55 Impressions: LVEF 60-65%. Normal LV chamber size, wall thickness and function. Normal right ventricular structure and function. No significant valvular dysfunction. No pulmonary hypertension. Left Ventricular Wall Motion: Rest Echo Findings All wall segments showed normal motion. Findings: Study Quality * Technically sub-optimal due to poor echocardiographic windows. ECG Findings * Normal sinus rhythm. Left Ventricle * LVEF 60-65%. * Normal LV chamber size, wall thickness and systolic function. * Normal left ventricular diastolic function. Right Ventricle * Normal right ventricular structure and function. Left Atrium * Normal left atrial size. Right Atrium * Normal right atrial size. Interatrial Septum * Interatrial septum not well evaluated. * No evidence of PFO by color Doppler. Aortic Valve * Aortic valve not well visualized. * No aortic stenosis. * No aortic regurgitation. Mitral Valve * Normal mitral valve structure and function. * No mitral stenosis. * No mitral regurgitation. Tricuspid Valve * Normal tricuspid valve structure. * No tricuspid stenosis. * Trace tricuspid regurgitation. * Estimated RVSP is 18 mmHg. * Estimated RA pressure is 3 mmHg. * No pulmonary hypertension. Pulmonic Valve * Pulmonic valve is not well visualized. * No pulmonic stenosis. * No pulmonic regurgitation. Aorta * Normally sized aortic root. Pericardium * The pericardium appears normal. IVC * The IVC is not dilated. * > 50% respiratory change - Attending Attestation I examined this patient and my medical decision-making was reviewed with the Resident Physician Dr Lora. I agree with the documented findings, disposition and treatment plan as described except to the extent set forth below. Mr Poole is admitted with hyponatremia and pancreatitis. Awake, alert, resting in bed, no family present. He denies confusion, + fatigue, no weakness/numbness, headache or vision changes. Epigastric pain is non radiating and somewhat improved. no n/v/d. Deneis fevers or chills. no cough or sob. gen- alert, awake,appears stated age eyes- pupils equal round cv- reg rate and rhythm, normal s1,s2, no murmurs appreciated, no le edema lungs- ctabl, no wheezing, rhonchi or crackles, normal resp effort on room air abd- soft, tender episgastrium, no rigidity, no guarding, , non distended, + bs neuro- AAOx3, CN grossly intact, no focal deficits Hyponatremia, chornicity cannot be determined as no prior labs and pt unsure suspect acute on chronic hypovolemic-euvolemic hyponatremia multifactorial- medication HCTZ, insensible water loss sweating, intake of free water and beer Overcorrection of Sodium related to NS boluses he received prior to admission to this hospital -pt in icu as overflow as step down full -na 129 this morning, nephro consulted as noted in event note, cont D5W, serial q4h checks as d/w Dr Cuevas, goal Na 121-123 as soon as possible today, cont neuro checks -urine studies reviewed Leukocytosis suspect 2/2 pancreatitis -ua normal , cT a/p without findings in base of lungs and no s/s of resp infection at this time -cont pancreatitis treatment as below Pancreatitis, suspected etoh related -check rUQ US, cont IVFs, clears, GI following, prn pain control Hypokalemia- replete PO and monitor etoh abuse, not in withdrawal- cont tele, ciwa, PO supplementation as cannot give banana bag with NS at this time further diagnoses and plan as noted by resident to step down when bed available remains appropriate. repeat Na up to 132, nephro contacted, ddavp given, cont with q 4 hr na and neuro checks. appreciate nephro assistance. <Gerhard Lora - Last Filed: 07/04/18 14:26> (2) Pancreatitis Qualifiers: Chronicity: acute Pancreatitis type: alcohol induced Acute pancreatitis complication: unspecified Qualified Code(s): K85.20 - Alcohol induced acute pancreatitis without necrosis or infection (4) Hypertension Qualifiers: Hypertension type: essential hypertension Qualified Code(s): I10 - Essential (primary) hypertension (5) Insomnia Qualifiers: Insomnia type: unspecified Qualified Code(s): G47.00 - Insomnia, unspecified
[2018-07-04] MEDS ORDERED: Thiamine (B-1) 100 MG, Folic Acid 1 MG, MVI, adult with vitamin K 10 ML in 0.9 % Sodi... IVPB SCH (18:00)
[2018-07-04] MEDS: *HR* Heparin 5,000 UNIT/ML VIAL SQ SCH (22:52)
[2018-07-05] MEDS: *HR* Heparin 5,000 UNIT/ML VIAL SQ SCH ×2 (06:02→17:45)
[2018-07-05 06:16] LABS: Basophils # 0.1 K/mcL (0.0-0.2); Basophils % 0.6 %; Eosinophils # 0.8 K/mcL (0.0-0.6); Eosinophils % 6.8 %; Hematocrit 37.9 % (37.5-50.1); Hemoglobin 13.2 g/dL (12.9-16.9); Immature Granulocytes % 0.3 % (0-4); Lymphocytes # 1.3 K/mcL (0.6-4.6); Lymphocytes % 11.8 %; Mean Corpuscular HGB Conc 34.8 g/dL (31.6-35.5); Mean Corpuscular Hemoglobin 29.9 pg (28.0-33.3); Mean Corpuscular Volume 85.9 fL (83.0-100.0); Monocytes # 1.3 K/mcL (0.0-1.3); Monocytes % 11.4 %; Neutrophils # 7.9 K/mcL (1.6-8.9); Platelet Count 238 K/mcL (140-400); Red Blood Count 4.41 M/mcL (4.19-5.50); Red Cell Distribution Width 13.2 % (11.5-14.5); Segmented Neutrophils % 69.1 %
[2018-07-05 06:53] LABS: BUN/Creatinine Ratio 13 (6-26); Blood Urea Nitrogen 5 mg/dL (6-20); Calcium 8.8 mg/dL (8.6-10.3); Carbon Dioxide 24 mEq/L (23-29); Chloride 92 mEq/L (98-107); Glucose 95 mg/dL (70-105); Lipase 833 Units/L (11-82); Osmolality,Calculated 255 (280-300); Potassium 3.6 mEq/L (3.5-5.1); Sodium 124 mEq/L (136-145); eGFR For Non-African Americans > 60 (> 60)
--- NOTE | 2018-07-05 07:42 | Internal Med Progress Note ---
<Gee David - Last Filed: 07/05/18 12:40> Hospitalist Progress Note - Encounter Date of Encounter: 07/05/18 Time of Encounter: 12:40 - Subjective Interval History: Patient was seen and examined at bedside this morning. He states that overall he continues to do very well. His abdominal pain has resolved. He is expansion no symptoms of confusion, numbness, tingling, vision changes, weakness. He has an appetite today and would like to eat. - Exam Vitals: Temp Pulse Resp BP Pulse Ox 98.5 F 75 14 163/113 93 07/05/18 07:25 07/05/18 07:25 07/05/18 07:25 07/05/18 07:25 07/05/18 07:25 Exam: Gen.: Vitals noted. No acute distress. AAOx3, resting comfortably in bed. Thin HEENT: PERRL/EOMI, oropharynx clear, Normocephalic, atraumatic, MMM Cardiac: RRR, no murmur, +S1/S2, No BLE edema Pulmonary: CTA bilaterally, no wheezes, rales or rhonchi, equal chest expansion, unlabored breathing Abdomen: soft, nontender, BS noted, no guarding, no palpable HSM Skin: warm and dry, no visible lesions. MSK: ROM not assessed, no joint swelling noted, gait no assessed while in bed. Non tender calf or clubbing Neuro: A&Ox3, moves all extremities, no focal deficits, sensation intact, Psych: Appropriate mood and behavior, AOx3 - Assessment and Plan (1) Pancreatitis Current Visit: Yes Status: Acute Assessment and Plan: - Evidence of acute pancreatitis with lipase in emergency room at of greater than 1800 - Trended to 1764, 833 this morning - Etiology is likely alcohol induced. - Patient is a daily drinker as documented below - Triglycerides within normal limits, we did obtain a gallbladder ultrasound which was negative for acute pathology this morning - Received copious fluids during admission which did impact his sodium as below - Currently he is clinically improved and we will attempt a diet today with advance as tolerated Plan - Discontinue fluids - Advance diet today - Symptomatic control - Advised alcohol cessation (2) Hyponatremia Current Visit: No Status: Acute Assessment and Plan: - Patient notably had initial presenting hyponatremia at 117 in emergency department - Patient did rapidly overcorrect to 129 on presentation to this facility after 3 L of normal saline bolus for pancreatitis - Patient has no baseline labs are available, unclear if this is acute or chronic - Patient denies any previous history of abnormal electrolyte results - Etiology is likely multifactorial including poor by mouth intake, insensible water loss, HCTZ - Nephrology is following, appreciate recommendations - Most recent sodium of 124 after D5W as well as desmopressin per nephrology recommendations - Sodium checks every 4 hours ordered - Patient is experiencing no signs or symptoms of central pontine demyelolysis, no neuro symptoms - Given the rapid increase and improvement of patient's sodium, I do suspect that this is more likely to be acute in nature, but will defer this to nephrology. Plan - Fluids have been stopped - Patient is now tolerating a diet which I suspect will improve his sodium - We will continue to check sodium every 4 hours and possibly decrease if patient's laboratory results improved at a more expected level - Goal sodium: 132 in next 24 hours - Further recommendations per nephrology - We will discontinue home hydrochlorothiazide (3) Hypertension Current Visit: Yes Status: Chronic Assessment and Plan: - Hypertensive and mildly tachycardic this morning at 160/92 and 97 - Patient does not appear to be withdrawn from alcohol this time is alert and oriented 3 - Likely etiology is cessation of his lisinopril/hydrochlorothiazide due to hyponatremia as above - We will restart lisinopril portion at 20 mg, when necessary metoprolol - Continue to monitor (4) History of alcohol use Current Visit: Yes Status: Chronic Assessment and Plan: - Patient does report a history of alcohol abuse in the past - Continues to drink alcohol, admits to 2-3, 12 ounce beers per day - Most recent drink just prior to admission - Denies any history of withdrawal - CIWA protocol in place, has been scoring 1-2 Plan - Continue telemetry and CIWA - Advised cutting back and possible cessation - Continue daily vitamins - Consider stopping alcohol withdrawal protocol tomorrow (5) Tobacco use Current Visit: Yes Status: Chronic Assessment and Plan: Advise cessation Patient requesting nicotine patch (6) DVT prophylaxis Current Visit: Yes Status: Acute Assessment and Plan: Subcutaneous heparin (7) Hypokalemia Current Visit: Yes Status: Acute Assessment and Plan: Suspect secondary to poor by mouth intake Known alcoholic which may be contributing Magnesium yesterday of 1.9 We will replace and monitor - Time Spent with Patient Total time spent is greater than 50% in coordination of care (as documented) at patient's floor/unit and/or counseling patient: Internal Medicine: Result - Labs CBC & Chem 7: 07/05/18 04:00 07/05/18 09:30 Labs: Short CBC 07/05/18 Range/Units 04:00 WBC 11.4 H (4.3-11.1) K/mcL Hgb 13.2 (12.9-16.9) g/dL Hct 37.9 (37.5-50.1) % Plt Count 238 (140-400) K/mcL Neutrophils # 7.9 (1.6-8.9) K/mcL BMP 07/04/18 07/04/18 07/04/18 07:58 09:15 13:00 Sodium 128 L 129 L 132 L Potassium Chloride Carbon Dioxide BUN Creatinine Glucose Calcium 07/04/18 07/04/18 07/05/18 17:30 21:04 01:30 Sodium 128 L 123 L 124 L Potassium Chloride Carbon Dioxide BUN Creatinine Glucose Calcium 07/05/18 04:00 Sodium 124 L Potassium 3.6 Chloride 92 L Carbon Dioxide 24 BUN 5 L Creatinine 0.40 L Glucose 95 Calcium 8.8 - Impressions Impressions Abdomen/Pelvis CT 07/04/18 00:06 IMPRESSION: Paraduodenal (groove) pancreatitis with moderate surrounding peripancreatic inflammatory stranding, duodenal wall thickening, 3.8 cm acute peripancreatic fluid collection and mild common bile duct and pancreatic duct dilatation. A 2.4 cm cyst at the pancreatic head is most suspicious for an intraductal papillary mucinous neoplasm (IPMN). Surrounding calcifications likely reflects sequela of chronic pancreatitis. (Very) heavy aortoiliac atherosclerotic calcifications with areas of severe luminal narrowing along the distal aorta and near complete versus complete luminal narrowing of the right common iliac artery. D/ / 07/04/2018 07:09:27 Eugene Helton / [email or web address] Interpreting Provider: Eugene Helton Echocardiogram 07/04/18 10:55 Impressions: LVEF 60-65%. Normal LV chamber size, wall thickness and function. Normal right ventricular structure and function. No significant valvular dysfunction. No pulmonary hypertension. Left Ventricular Wall Motion: Rest Echo Findings All wall segments showed normal motion. Findings: Study Quality * Technically sub-optimal due to poor echocardiographic windows. ECG Findings * Normal sinus rhythm. Left Ventricle * LVEF 60-65%. * Normal LV chamber size, wall thickness and systolic function. * Normal left ventricular diastolic function. Right Ventricle * Normal right ventricular structure and function. Left Atrium * Normal left atrial size. Right Atrium * Normal right atrial size. Interatrial Septum * Interatrial septum not well evaluated. * No evidence of PFO by color Doppler. Aortic Valve * Aortic valve not well visualized. * No aortic stenosis. * No aortic regurgitation. Mitral Valve * Normal mitral valve structure and function. * No mitral stenosis. * No mitral regurgitation. Tricuspid Valve * Normal tricuspid valve structure. * No tricuspid stenosis. * Trace tricuspid regurgitation. * Estimated RVSP is 18 mmHg. * Estimated RA pressure is 3 mmHg. * No pulmonary hypertension. Pulmonic Valve * Pulmonic valve is not well visualized. * No pulmonic stenosis. * No pulmonic regurgitation. Aorta * Normally sized aortic root. Pericardium * The pericardium appears normal. IVC * The IVC is not dilated. * > 50% respiratory change Consult Discharge Plan - Plan Referrals: NONE,PCP [Primary Care Provider] - <Alexandra Watts - Last Filed: 07/05/18 12:59> Hospitalist Progress Note - Encounter Date of Encounter: 07/05/18 - Exam Vitals: Temp Pulse Resp BP Pulse Ox 98.5 F 97 14 160/92 93 07/05/18 11:37 07/05/18 11:37 07/05/18 11:37 07/05/18 11:37 07/05/18 11:37 - Assessment and Plan (1) Pancreatitis Current Visit: Yes Status: Acute (2) Hyponatremia Current Visit: No Status: Acute (3) Hypertension Current Visit: Yes Status: Chronic (4) History of alcohol use Current Visit: Yes Status: Chronic (5) DVT prophylaxis Current Visit: Yes Status: Acute (6) Tobacco use Current Visit: Yes Status: Chronic (7) Hypokalemia Current Visit: Yes Status: Acute - Time Spent with Patient Total time spent is greater than 50% in coordination of care (as documented) at patient's floor/unit and/or counseling patient: Internal Medicine: Result - Labs CBC & Chem 7: 07/05/18 04:00 07/05/18 09:30 Labs: Short CBC 07/05/18 Range/Units 04:00 WBC 11.4 H (4.3-11.1) K/mcL Hgb 13.2 (12.9-16.9) g/dL Hct 37.9 (37.5-50.1) % Plt Count 238 (140-400) K/mcL Neutrophils # 7.9 (1.6-8.9) K/mcL BMP 07/04/18 07/04/18 07/04/18 13:00 17:30 21:04 Sodium 132 L 128 L 123 L Potassium Chloride Carbon Dioxide BUN Creatinine Glucose Calcium 07/05/18 07/05/18 07/05/18 01:30 04:00 09:30 Sodium 124 L 124 L 124 L Potassium 3.6 Chloride 92 L Carbon Dioxide 24 BUN 5 L Creatinine 0.40 L Glucose 95 Calcium 8.8 - Impressions Impressions Echocardiogram 07/04/18 10:55 Impressions: LVEF 60-65%. Normal LV chamber size, wall thickness and function. Normal right ventricular structure and function. No significant valvular dysfunction. No pulmonary hypertension. Left Ventricular Wall Motion: Rest Echo Findings All wall segments showed normal motion. Findings: Study Quality * Technically sub-optimal due to poor echocardiographic windows. ECG Findings * Normal sinus rhythm. Left Ventricle * LVEF 60-65%. * Normal LV chamber size, wall thickness and systolic function. * Normal left ventricular diastolic function. Right Ventricle * Normal right ventricular structure and function. Left Atrium * Normal left atrial size. Right Atrium * Normal right atrial size. Interatrial Septum * Interatrial septum not well evaluated. * No evidence of PFO by color Doppler. Aortic Valve * Aortic valve not well visualized. * No aortic stenosis. * No aortic regurgitation. Mitral Valve * Normal mitral valve structure and function. * No mitral stenosis. * No mitral regurgitation. Tricuspid Valve * Normal tricuspid valve structure. * No tricuspid stenosis. * Trace tricuspid regurgitation. * Estimated RVSP is 18 mmHg. * Estimated RA pressure is 3 mmHg. * No pulmonary hypertension. Pulmonic Valve * Pulmonic valve is not well visualized. * No pulmonic stenosis. * No pulmonic regurgitation. Aorta * Normally sized aortic root. Pericardium * The pericardium appears normal. IVC * The IVC is not dilated. * > 50% respiratory change Gallbladder Ultrasound 07/04/18 16:00 IMPRESSION: 1. No acute abnormality. D/ / Adan Sanders MD / Adan Sanders MD Interpreting Provider: Adan Sanders MD - Attending Attestation I examined this patient and my medical decision-making was reviewed with the Resident Physician Dr Lora. I agree with the documented findings, disposition and treatment plan as described except to the extent set forth below. Mr Poole is admitted with hyponatremia and pancreatitis. Awake, alert, resting in bed. Denies palpitations with any HR increase. some ringing in ears when BP elevated. no chest pain. epigastric pain now very mild. no confusion, somnolence or weakness gen- alert, awake,appears stated age eyes- pupils equal round cv- reg rate and rhythm, normal s1,s2, no murmurs appreciated lungs- ctabl, normal resp effort on room air abd- soft, non tender, no rigidity, no guarding, , non distended, + bs neuro- AAOx3, CN grossly intact, no focal deficits Hyponatremia, chronicity cannot be determined as no prior labs and pt unsure suspect acute on chronic hypovolemic-euvolemic hyponatremia multifactorial- medication HCTZ, insensible water loss sweating, intake of free water and beer Overcorrection of Sodium related to NS boluses he received prior to admission to this hospital -na correction slowed with d5w and DDavp yesterday -nephro following and will fu recs today, currently off ivfs and will trend sodium Leukocytosis suspect 2/2 pancreatitis -ua normal , cT a/p without findings in base of lungs and no s/s of resp infection at this time -cont pancreatitis treatment as below Pancreatitis, suspected etoh related -RUQ US reviewed and unremarkable -lipase downtrending now 800s, given he cannot be on cont ivfs due to sodium level, will advance to clear liquids and encourage oral intake -GI following Hypokalemia- resolved etoh abuse, not in withdrawal- cont tele, ciwa, PO supplementation as cannot give banana bag with NS HTN- holding home hctz given hyponatremia, may resume home lisinopril, prn lopressor, adjust meds as needed, outpt fu upon dc further diagnoses and plan as noted by resident to step down when bed available remains appropriate. <Gee David - Last Filed: 07/05/18 12:40> (1) Pancreatitis Qualifiers: Chronicity: acute Pancreatitis type: alcohol induced Acute pancreatitis complication: unspecified Qualified Code(s): K85.20 - Alcohol induced acute tejeda creatitis without necrosis or infection (3) Hypertension Qualifiers: Hypertension type: essential hypertension Qualified Code(s): I10 - Essential (primary) hypertension <Alexandra Watts - Last Filed: 07/05/18 12:59> (1) Pancreatitis Qualifiers: Chronicity: acute Pancreatitis type: alcohol induced Acute pancreatitis complication: unspecified Qualified Code(s): K85.20 - Alcohol induced acute pancreatitis without necrosis or infection (3) Hypertension Qualifiers: Hypertension type: essential hypertension Qualified Code(s): I10 - Essential (primary) hypertension
--- NOTE | 2018-07-05 11:44 | Nephrology Progress Note ---
Date of Encounter: 07/05/18 Time of Encounter: 12:45 - Assessment and Plan (1) Hyponatremia Current Visit: No Status: Acute Now that sufficient time has passed, he is okay to allow for more of a slow correction of the hyponatremia. (2) History of alcohol use Current Visit: Yes Status: Chronic I counseled him for greater than 50% in counter to cut back on alcohol consumption. He should not drink so much water when he is working outside in [employer] as well, and perhaps choose Gatorade or Powerade, or other solutions that are electrolyte rich. (3) Hypertension Current Visit: Yes Status: Chronic He will need avoid hydrochlorothiazide, and at this point it is okay to initiate other antihypertensive agents that do not affect hyponatremia. Qualifiers: Hypertension type: essential hypertension Qualified Code(s): I10 - Essential (primary) hypertension (4) Pancreatitis Current Visit: Yes Status: Acute As per primary Qualifiers: Chronicity: acute Pancreatitis type: alcohol induced Acute pancreatitis complication: unspecified Qualified Code(s): K85.20 - Alcohol induced acute pancreatitis without necrosis or infection Subjective Principal diagnosis: Hyponatremia Interval history: The patient was seen and examined. In the last 24 hours, he transferred out of the ICU. He was seen laying down in his exam room bed. He did not affirm nausea, vomiting, diarrhea. He voiced feeling better today He voiced hoping to be discharge to home soon as he works in [employer] and that he is needed or hi s work. Objective - Vital Signs Vital signs: Vital Signs Temp Pulse Resp BP Pulse Ox 07/05/18 11:37 98.5 F 97 14 160/92 93 07/05/18 08:00 168/98 07/05/18 07:55 162/98 07/05/18 07:25 98.5 F 75 14 163/113 93 07/05/18 04:42 98.7 F 72 12 166/99 97 07/05/18 00:39 98.6 F 70 16 128/75 98 07/04/18 21:32 98.5 F 70 16 175/101 100 07/04/18 17:17 98.4 F 81 16 195/100 07/04/18 12:28 76 07/04/18 12:27 75 20 156/86 97 Intake and Output 07/04/18 07/05/18 07/05/18 23:59 07:59 15:59 Intake Total 200 / 700 0 / 0 0 / 0 Output Total 600 / 1250 400 / 400 Balance -400 / -550 -400 / -400 0 / -400 Intake: IV Fluids 200 / 700 Oral 0 / 0 0 / 0 0 / 0 Output: Urine 600 / 1250 400 / 400 Other: Meal Breakfast Percent of Meal Consumed 0% Weight 51 kg Blood Glucose* 87 Patient Weight 07/05/18 23:59 Weight 51 kg - General Appearance Exam: General appearance: Present: well-developed, thin appearing. EENT: Present: ATNC, PERRL, mucous membranes moist Neck: Present: supple Respiratory: Present: clear Cardiology: Present: no edema, regular rate, regular rhythm, normal S1, normal S2 Gastrointestinal: Present: normoactive bowel sounds, no tenderness, no guarding. Absent: distended Integumentary: Present: no rash, warm and dry Neurologic: Present: no focal deficit, no asterixis, alert and oriented x3, fine intention tremor noted in his hands bilaterally Musculoskeletal: Present: no erythema, no cyanosis, no clubbing Psychiatric: Present: mood/affect appropriate, cooperative - Lab 07/05/18 04:00 07/06/18 18:00 Most recent lab results 07/05/18 04:00 Calcium 8.8 Consult Discharge Plan - Plan Referrals: NONE,PCP [Primary Care Provider] -
[2018-07-05] MEDS: Lisinopril 20 MG TABLET PO SCH (12:01)
[2018-07-05] MEDS: Nicotine 21 MG PATCH.TD24 TD SCH (13:55)
[2018-07-05] MEDS: *HR* HYDROcodone/Acet 5/325 mg TABLET PO PRN ×2 (13:59→22:22)
[2018-07-05] MEDS ORDERED: Melatonin 3 MG TABLET PO PRN (17:52)
[2018-07-06 02:27] LABS: BUN/Creatinine Ratio 11 (6-26); Blood Urea Nitrogen 4 mg/dL (6-20); Calcium 8.2 mg/dL (8.6-10.3); Carbon Dioxide 23 mEq/L (23-29); Chloride 92 mEq/L (98-107); Glucose 119 mg/dL (70-105); Osmolality,Calculated 256 (280-300); Potassium 3.8 mEq/L (3.5-5.1); Sodium 124 mEq/L (136-145); eGFR For Non-African Americans > 60 (> 60)
[2018-07-06] MEDS: *HR* Heparin 5,000 UNIT/ML VIAL SQ SCH ×2 (05:09→17:59)
[2018-07-06 07:38] LABS: Sodium 123 mEq/L (136-145)
[2018-07-06] MEDS ORDERED: 0.9 % Sodium Chloride 500 ML IVC ONE (08:04)
[2018-07-06 08:07] LABS: Lipase 1500 Units/L (11-82)
[2018-07-06] MEDS ORDERED: 0.9 % Sodium Chloride 1,000 ML IVC SCH ×2 (08:15→17:07)
[2018-07-06] MEDS: Nicotine 21 MG PATCH.TD24 TD SCH (10:17)
[2018-07-06] MEDS: Lisinopril 20 MG TABLET PO SCH (10:18)
--- NOTE | 2018-07-06 12:03 | Nephrology Progress Note ---
Date of Encounter: 07/06/18 Time of Encounter: 11:40 - Assessment and Plan (1) Hyponatremia Current Visit: No Status: Acute Recommend starting NaCl tablets and avoiding beer going forward. If his PNa improves sufficiently by tomorrow, then I would be okay with D/C but he'll need repeat labs in about 1 week (he works outside in [employer] and so he is at a higher risk for sweating/electrolyte changes), plus he'll need outpt Nephro follow up. (2) History of alcohol use Current Visit: Yes Status: Chronic I counseled him for greater than 50% in counter to cut back on alcohol consu mption. He should not drink so much water when he is working outside in [employer] as well, and perhaps choose Gatorade or Powerade, or other solutions that are electrolyte rich. (3) Hypertension Current Visit: Yes Status: Chronic He will need avoid hydrochlorothiazide, and at this point it is okay to initiate other antihypertensive agents that do not affect hyponatremia. Qualifiers: Hypertension type: essential hypertension Qualified Code(s): I10 - Essential (primary) hypertension (4) Pancreatitis Current Visit: Yes Status: Acute As per primary Qualifiers: Chronicity: acute Pancreatitis type: alcohol induced Acute pancreatitis complication: unspecified Qualified Code(s): K85.20 - Alcohol induced acute pancreatitis without necrosis or infection (5) Tobacco use Current Visit: Yes Status: Chronic He asked to go smoking off the floor/outside the hospital, and I instructed him that this was not advisable or even allowable for his safety. He voiced understanding. He should use a nicotine patch while admitted. He also should quit smoking I informed him. Subjective Principal diagnosis: Hyponatremia with rapid correction initiatlly Interval history: The patient was seen and examined. He did not affirm nausea, vomiting, diarrhea, and he said that his abdominal pain is slowly improving. Reported feeling more energy. Objective - Vital Signs Vital signs: Vital Signs Temp Pulse Resp BP Pulse Ox 07/06/18 07:15 98.1 F 75 14 143/83 98 07/06/18 04:55 98.1 F 91 16 134/96 07/06/18 00:03 98.2 F 70 16 126/89 07/05/18 21:09 98.3 F 83 12 156/98 98 07/05/18 15:29 97.9 F 80 14 144/99 98 Intake and Output 07/05/18 07/06/18 07/06/18 23:59 07:59 15:59 Intake Total 1173 200 / 680 480 / 680 Output Total 1240 / 2340 575 / 1250 675 / 1250 Balance -66 / -326 -375 / -570 -195 / -570 Intake: Oral 1173 200 / 680 480 / 680 Output: Urine 1240 / 2340 575 / 1250 675 / 1250 Other: Meal Dinner Breakfast Percent of Meal Consumed 100% 50% Weight 52 kg Patient Weight 07/06/18 23:59 Weight 52 kg - General Appearance General appearance: Present: well-developed, cachectic EENT: Present: ATNC, PERRL, mucous membranes moist Neck: Present: supple Respiratory: Present: clear Cardiology: Present: no edema, regular rate, regular rhythm, normal S1, normal S2 Gastrointestinal: Present: normoactive bowel sounds, no tenderness, no guarding. Absent: distended Integumentary: Present: no rash, warm and dry Neurologic: Present: no focal deficit, no asterixis, alert and oriented x3 Musculoskeletal: Present: no erythema, no cyanosis, no clubbing Psychiatric: Present: mood/affect appropriate, cooperative - Lab 07/05/18 04:00 07/06/18 18:00 Most recent lab results 07/06/18 01:58 Calcium 8.2 L Consult Discharge Plan - Plan Referrals: NONE,PCP [Primary Care Provider] -
--- NOTE | 2018-07-06 14:58 | Internal Med Progress Note ---
<Gee David - Last Filed: 07/06/18 14:56> Hospitalist Progress Note - Encounter Date of Encounter: 07/06/18 Time of Encounter: 09:17 - Subjective Interval History: Patient seen and examined at bedside. He states that overall he is feeling very well with resolution of his abdominal pain. He is having no nausea, vomiting, fevers, chills. He is tolerating his diet without complaints. - Exam Vitals: Temp Pulse Resp BP Pulse Ox 98.1 F 75 14 143/83 98 07/06/18 07:15 07/06/18 07:15 07/06/18 07:15 07/06/18 07:15 07/06/18 07:15 Exam: Gen.: Vitals noted. No acute distress. AAOx3, resting comfortably in bed. Thin HEENT: PERRL/EOMI, oropharynx clear, Normocephalic, atraumatic, MMM Cardiac: RRR, no murmur, +S1/S2, No BLE edema Pulmonary: CTA bilaterally, no wheezes, rales or rhonchi, equal chest expansion, unlabored breathing Abdomen: soft, nontender, BS noted, no guarding, no palpable HSM Skin: warm and dry, no visible lesions. MSK: ROM not assessed, no joint swelling noted, gait no assessed while in bed. Non tender calf or clubbing Neuro: A&Ox3, moves all extremities, no focal deficits, sensation intact, Psych: Appropriate mood and behavior, AOx3 - Assessment and Plan (1) Pancreatitis Current Visit: Yes Status: Acute Assessment and Plan: - Evidence of acute pancreatitis with lipase in emergency room at of greater than 1800 - Trended to 1764, 833/1500 - Etiology is likely alcohol induced. - Patient is a daily drinker as documented below - Triglycerides within normal limits, we did obtain a gallbladder ultrasound which was negative for acute pathology - Received copious fluids during admission which did impact his sodium as below - Currently he is clinically improved and we will attempt a diet today with advance as tolerated Plan - Discontinue fluids - Advance diet today - Symptomatic control - Advised alcohol cessation (2) Hyponatremia Current Visit: No Status: Acute Assessment and Plan: - Patient notably had initial presenting hyponatremia at 117 in emergency department - Patient did rapidly overcorrect to 129 on presentation to this facility after 3 L of normal saline bolus for pancreatitis - Patient has no baseline labs are available, unclear if this is acute or chronic - Patient denies any previous history of abnormal electrolyte results - Etiology is likely multifactorial including poor by mouth intake, insensible water loss, HCTZ - Nephrology is following, appreciate recommendations - Most recent sodium of 124 - Had been on D5W and desmopressin per nephrology recommendations after rapid correction. Now can increase - Sodium checks every 4 hours ordered - Patient is experiencing no signs or symptoms of central pontine demyelolysis, no neuro symptoms - Given the rapid increase and improvement of patient's sodium, I do suspect that this is more likely to be acute in nature, but will defer this to nephrology. Plan - Fluids restarted at 80/hr which should help Na. Also bolus 500 mL - Patient is now tolerating a diet which I suspect will improve his sodium - We will continue to check sodium every 4 hours - Goal sodium: 132 in next 24 hours - Further recommendations per nephrology - We will discontinue home hydrochlorothiazide (3) Hypertension Current Visit: Yes Status: Chronic Assessment and Plan: - Hypertensive mild this morning at 143/83 - Patient does not appear to be withdrawn from alcohol this time is alert and oriented 3 - Likely etiology is cessation of his lisinopril/hydrochlorothiazide due to hyponatremia as above - We will restart lisinopril portion at 20 mg, when necessary metoprolol - Continue to monitor (4) History of alcohol use Current Visit: Yes Status: Chronic Assessment and Plan: - Patient does report a history of alcohol abuse in the past - Continues to drink alcohol, admits to 2-3, 12 ounce beers per day - Most recent drink just prior to admission - Denies any history of withdrawal - CIWA protocol in place, has been scoring 1-2 Plan - Continue telemetry - Advised cutting back and possible cessation - Continue daily vitamins - Stop CIWA today (5) Tobacco use Current Visit: Yes Status: Chronic Assessment and Plan: Advise cessation Patient requesting nicotine patch (6) DVT prophylaxis Current Visit: Yes Status: Acute Assessment and Plan: Subcutaneous heparin (7) Hypokalemia Current Visit: Yes Status: Acute Assessment and Plan: Suspect secondary to poor by mouth intake Improved today, 3.8 Known alcoholic which may be contributing Magnesium yesterday of 1.9 We will replace and monitor - Time Spent with Patient Total time spent is greater than 50% in coordination of care (as documented) at patient's floor/unit and/or counseling patient: Internal Medicine: Result - Labs CBC & Chem 7: 07/05/18 04:00 07/06/18 10:19 Labs: BMP 07/05/18 07/05/18 07/05/18 13:30 17:55 22:10 Sodium 125 L 124 L 123 L Potassium Chloride Carbon Dioxide BUN Creatinine Glucose Calcium 07/06/18 07/06/18 07/06/18 01:58 06:15 10:19 Sodium 124 L 123 L 124 L Potassium 3.8 Chloride 92 L Carbon Dioxide 23 BUN 4 L Creatinine 0.37 L Glucose 119 H Calcium 8.2 L Consult Discharge Plan - Plan Referrals: NONE,PCP [Primary Care Provider] - <Alexandra Watts - Last Filed: 07/06/18 15:16> Hospitalist Progress Note - Encounter Date of Encounter: 07/06/18 - Exam Vitals: Temp Pulse Resp BP Pulse Ox 98.1 F 75 14 143/83 98 07/06/18 07:15 07/06/18 07:15 07/06/18 07:15 07/06/18 07:15 07/06/18 07:15 - Assessment and Plan (1) Pancreatitis Current Visit: Yes Status: Acute (2) Hyponatremia Current Visit: No Status: Acute (3) Hypertension Current Visit: Yes Status: Chronic (4) History of alcohol use Current Visit: Yes Status: Chronic (5) DVT prophylaxis Current Visit: Yes Status: Acute (6) Tobacco use Current Visit: Yes Status: Chronic (7) Hypokalemia Current Visit: Yes Status: Acute - Time Spent with Patient Total time spent is greater than 50% in coordination of care (as documented) at patient's floor/unit and/or counseling patient: Internal Medicine: Result - Labs CBC & Chem 7: 07/05/18 04:00 07/06/18 10:19 Labs: BMP 07/05/18 07/05/18 07/05/18 13:30 17:55 22:10 Sodium 125 L 124 L 123 L Potassium Chloride Carbon Dioxide BUN Creatinine Glucose Calcium 07/06/18 07/06/18 07/06/18 01:58 06:15 10:19 Sodium 124 L 123 L 124 L Potassium 3.8 Chloride 92 L Carbon Dioxide 23 BUN 4 L Creatinine 0.37 L Glucose 119 H Calcium 8.2 L - Attending Attestation I examined this patient and my medical decision-making was reviewed with the Resident Physician Dr Lora. I agree with the documented findings, disposition and treatment plan as described except to the extent set forth below. Mr Poole is admitted with hyponatremia and pancreatitis. Awake, no confusion or lethargy. no abd pain, n/v. tolerated clears without any symptoms. is feeling back to his baseline despite lipase elevation today. denies any etoh w/d symptoms. gen- alert, awake,appears stated age cv- reg rate and rhythm, normal s1,s2, no murmurs appreciated lungs- ctabl, normal resp effort on room air abd- soft, non tender, no guarding, , non distended, + bs neuro- AAOx3, CN grossly intact, no focal deficits Hyponatremia, chronicity cannot be determined as no prior labs and pt unsure suspect acute on chronic hypovolemic-euvolemic hyponatremia multifactorial- medication HCTZ, insensible water loss sweating, intake of free water and beer Overcorrection of Sodium related to NS boluses he received prior to admission to this hospital, slowed with D5W and DDAVP -appreciate nephro recs, can now slowly increase sodium, NS slow rate and freq na checks ordered for today Leukocytosis suspect 2/2 pancreatitis, improved, afebrile -ua normal , cT a/p without findings in base of lungs and no s/s of resp infection at this time -cont pancreatitis treatment as below Pancreatitis, suspected etoh related RUQ US reviewed and unremarkable -lipase elevation likely 2/2 decreased fluids yesterday, as can now correct Na will give NS IVFs -clinically he is asx and back to baseline and no issues with liquid diet, will advance diet and monitor -GI following adn will fu their recs when they return tomorrow etoh abuse, not in withdrawal- outside window for withdrawal now, PO supplementation , pt stating he will cut way back on beer intake post hospitalization HTN- holding home hctz given hyponatremia, cont lisinopril, prn lopressor, ad just meds as needed, outpt fu upon dc further diagnoses and plan as noted by resident <Gee David - Last Filed: 07/06/18 14:56> (1) Pancreatitis Qualifiers: Chronicity: acute Pancreatitis type: alcohol induced Acute pancreatitis complication: unspecified Qualified Code(s): K85.20 - Alcohol induced acute pancreatitis without necrosis or infection (3) Hypertension Qualifiers: Hypertension type: essential hypertension Qualified Code(s): I10 - Essential (primary) hypertension <Alexandra Watts - Last Filed: 07/06/18 15:16> (1) Pancreatitis Qualifiers: Chronicity: acute Pancreatitis type: alcohol induced Acute pancreatitis complication: unspecified Qualified Code(s): K85.20 - Alcohol induced acute pancreatitis without necrosis or infection (3) Hypertension Qualifiers: Hypertension type: essential hypertension Qualified Code(s): I10 - Essential (primary) hypertension
[2018-07-07] MEDS: *HR* Heparin 5,000 UNIT/ML VIAL SQ SCH (06:09)
[2018-07-07 06:48] LABS: BUN/Creatinine Ratio 7 (6-26); Blood Urea Nitrogen 3 mg/dL (6-20); Calcium 8.4 mg/dL (8.6-10.3); Carbon Dioxide 23 mEq/L (23-29); Chloride 99 mEq/L (98-107); Glucose 114 mg/dL (70-105); Osmolality,Calculated 265 (280-300); Potassium 3.5 mEq/L (3.5-5.1); Sodium 129 mEq/L (136-145); eGFR For Non-African Americans > 60 (> 60)
--- NOTE | 2018-07-07 08:52 | Discharge Summary ---
<Gerhard Jeronimo - Last Filed: 07/07/18 13:53> Orders not resulted at time of discharge: Pending orders 07/07/18 06:14 BMP [Basic Metabolic Panel] AM 0400 Lipase Routine Date of Encounter: 07/07/18 Time of Encounter: 11:45 - Discharge Diagnosis (1) Hyponatremia Priority: Primary Status: Acute (2) Pancreatitis Priority: Secondary Status: Acute Qualifiers: Chronicity: acute Pancreatitis type: alcohol induced Acute pancreatitis complication: unspecified Qualified Code(s): K85.20 - Alcohol induced acute pancreatitis without necrosis or infection (3) History of alcohol use Priority: Secondary Status: Chronic (4) Hypertension Priority: Secondary Status: Chronic Qualifiers: Hypertension type: essential hypertension Qualified Code(s): I10 - Essential (primary) hypertension (5) Insomnia Priority: Secondary Status: Chronic Qualifiers: Insomnia type: unspecified Qualified Code(s): G47.00 - Insomnia, un specified (6) DVT prophylaxis Priority: Secondary Status: Acute Hospital course: Mr. Poole is a 58 year old male with a PMH of insomnia, HTN, and alcohol abuse who presented to [facility] ED as a transfer from outside ED complaining of abdominal pain of 2 days duration. He reported that approximately 2 days prior, he had eaten a chicken sandwich, and he woke up at next day with abdominal pain. Reported associated nausea and decreased oral intake during this time. Also stated that he had been in the sun mowing his lawn. He reported frequent urination, but denied having any dysuria or incontinence. He denied having changes to his bowel or bladder habits. Reported a daily alcohol intake approx imately 72 ounces of beer per day, with increased amount on the weekends. He denied having any prior history of pancreatitis. At outside emergency department, patients sodium was noted to be 117. No previous labs to compare to. White count was noted to be 13.8. No imaging ordered at this time. He received approximately 3 L of normal saline. He was then transferred to [facility] for further management. Upon arrival, patients vital signs were as follows: Temperature 90.8, pulse 93, respiratory rate 14, blood pressure 173/104, and O2 saturation 99. Labs were significant for a sodium level of 129 and lipase level of 1764. Concern was for overcorrection of hyponatremia. Patient had received 3 L of normal saline at outside facility. Nephrology was consulted from the emergency department, who recommended a 500 mL bolus of D5W followed by 1 25 mL per hour to begin with, with a goal sodium level of 121-123. Patient was transferred to the ICU with every one hour sodium checks and every 4 hour neuro checks. He was admitted for hyponatremia and pancreatitis. His hyponatremia was attributed to multiple factors, including beer potomania, nausea and vomiting, sweating, and the use of lisinopril and hydrochlorothiazide. Attempt was made to obtain outside records for baseline sodium level; none were obtained. Repeat sodium levels after arrival to the emergency department were as follows: 129, 127, 128, 129, 132. After this, his sodium levels averaged between 125 to 129. Due to this rising sodium, he was given a bolus of D5 in water at 125 mL per hour. Since his sodium levels did not correct, nephrology recommended starting DDAVP, a one-time dose of 2 g subcutaneous was administered. Initial lipase was noted to be 1764. He reported periumbilical abdominal pain. GI was consulted; was placed on a clear liquid diet initially. A right upper quadrant ultrasound was ordered, which was unremarkable. Patient was placed on Zofran for nausea control. During his stay in the hospital, his sodium improved, and his diet was advanced to a regular diet. He is tolerating it without complications. Per the recommendations of nephrology, patient is to follow-up with nephrology in less than 4 weeks in the outpatient setting. He will also require follow-up with his primary care provider and a BMP in 1 week. On date of discharge, patient states that he is feeling well. He is eating well, and denies having nausea, vomiting, or abdominal pain. Patient will also need follow-up with GI in the outpatient setting for EUS to rule out the possibility of IPMN. He was seen and examined on date of discharge. States that he is feeling well. Denies fever, chills, nausea, vomiting, abdominal pain, confusion, dizziness, or visual disturbances. He has no complaints at this time. Patient will be discharged with a prescription for lisinopril instead of the Lisinopril-HCTZ combination. - Time Spent with Patient Total time spent providing and/or coordinating discharge services: - Discharge Medications Prescriptions: New Lisinopril [Zestril] 20 mg PO DAILY #30 tablet Continued Bismuth Subsalicylate [PEPTO-BISMOL (262mg/15mL) Susp] 1 each PO 5XD PRN PRN Reason: NAUSEA, DIARRHEA, UPSET STOMAC Discontinued Lisinopril-HCTZ 20-12.5 [Prinzide 20-12.5] 1 tab PO BID Home Medications: Bismuth Subsalicylate [PEPTO-BISMOL (262mg/15mL) Susp] 1 each PO 5XD PRN 07/03/18 [History] Lisinopril [Zestril] 20 mg PO DAILY #30 tablet 07/07/18 [Rx] Allergies/Adverse Reactions: Allergy/AdvReac Type Severity Reaction Status Date / Time No Known Allergies Allergy Verified 07/03/18 23:00 Date of admission: 07/03/18 22:04 Primary care physician: PCP NONE Consults: 07/03/18 23:24 Consult to [facility] [CONS] Routine Reason for SW Consult: History of alcohol abuse 07/04/18 03:50 Consult to Gastroenterology [CONS] Routine Consulting Provider: Gastroenterology Kellie Reason for Consult: Acute pancreatitis. CT reading of a 2.4 cm cyst at pancreatic head suspicious for an intraductal papillary mucinous neoplasm. History of chronic alcohol use Call Completed: No 07/04/18 07:20 Consult to Nephrology [CONS] Routine Consulting Provider: Kidney Kellie/AMAURY/JANESSA/LAY Reason for Consult: hyponatremia with overcorrection at outside facility, assistance with treatment, thank you Call Completed: Yes 07/04/18 07:36 Consult to PICC team [Consult to Invasive Line Access Team] [CONS] Stat Reason for Consult: patient requires q 1 hour lab draws Line Type: EPIV Discharging clinician: Gerhard Jeronimo Anticipated date of discharge: 07/07/18 - Constitutional Vitals: Temp Pulse Resp BP Pulse Ox 97.6 F 70 16 154/94 97 07/07/18 08:01 07/07/18 08:01 07/07/18 08:01 07/07/18 08:01 07/07/18 08:01 General appearance: Present: pleasant, no acute distress, answers questions appropriately Exam: General: A&O X3, conversant, no acute distress Head: atraumatic, normocephalic Eye: PERRL, EOMI, conjuntiva pink, sclera anicteric Neck: Supple, trachea midline; No lymphadenopathy Respiratory: CTAB. No accessory muscle use, wheezes, rales, or rhonchi Cardiovascular: RRR, +S1, +S2; no murmurs, rubs, gallops Abdomen: Soft, nontender Extremities: warm, radial pulses palpable and symmetrical Psychiatric: Normal affect, normal mood Skin: Dry, intact - Patient Status Disposition: Home, Self-Care Condition: Good - Discharge Instructions Follow Up With: NONE,PCP [Primary Care Provider] - Gretta Tompkins MD [Partnered Physician] - Olayinka Dominguez DO [Partnered Physician] - Additional Instructions: Follow up with your [place] pcp as discussed. You also require GI and Kidney doctor follow up. You will be contacted with appt dates/time - Diet and Activity Activity: increase activity as tolerated <Alexandra Watts - Last Filed: 07/07/18 13:59> - NOTES TO OUTPATIENT PROVIDER Notes to Outpatient Provider: Discharged on salt tabs. Needs bmp to assess sodium in one week. Reres nephro follow up for hyponatremia. HCTZ stopped. Follow up BP and for med adjustments on lisinopril. Etoh pancreatitis, CT with pancreatic head cyst. Requires outpt GI follow up for outpt EUS to be preformed. Date of Encounter: 07/07/18 - Discharge Diagnosis (1) Pancreatitis Status: Acute Qualifiers: Chronicity: acute Pancreatitis type: alcohol induced Acute pancreatitis complication: unspecified Qualified Code(s): K85.20 - Alcohol induced acute pancreatitis without necrosis or infection (2) Hyponatremia Status: Acute (3) Hypertension Status: Chronic Qualifiers: Hypertension type: essential hypertension Qualified Code(s): I10 - Essential (primary) hypertension (4) History of alcohol use Status: Chronic (5) DVT prophylaxis Status: Acute (6) Tobacco use Status: Chronic (7) Hypokalemia Status: Acute Hospital course: Mr. Poole is a 58 year old male - Time Spent with Patient Total time spent providing and/or coordinating discharge services: Time spent: Greater than 30 minutes (40 min) Date of admission: 07/03/18 22:04 Primary care physician: PCP NONE Consults: 07/03/18 23:24 Consult to [facility] [CONS] Routine Reason for SW Consult: History of alcohol abuse 07/04/18 03:50 Consult to Gastroenterology [CONS] Routine Consulting Provider: Gastroenterology Kellie Reason for Consult: Acute pancreatitis. CT reading of a 2.4 cm cyst at pancreatic head suspicious for an intraductal papillary mucinous neoplasm. History of chronic alcohol use Call Completed: No 07/04/18 07:20 Consult to Nephrology [CONS] Routine Consulting Provider: Kidney Kellie/AMAURY/JANESSA/LAY Reason for Consult: hyponatremia with overcorrection at outside facility, assistance with treatment, thank you Call Completed: Yes 07/04/18 07:36 Consult to PICC team [Consult to Invasive Line Access Team] [CONS] Stat Reason for Consult: patient requires q 1 hour lab draws Line Type: EPIV - Constitutional Vitals: Temp Pulse Resp BP Pulse Ox 98.0 F 72 16 158/94 98 07/07/18 11:37 07/07/18 11:37 07/07/18 11:37 07/07/18 11:37 07/07/18 11:37 - Patient Status Overall status at discharge: patient is back to baseline - Diet and Activity Diet: advance to your usual diet (advance slowly from soft diet), low salt diet, other (NO alcohol) - Attending Attestation I examined this patient and my medical decision-making was reviewed with the Resident Physician Dr Jeronimo. I agree with the documented findings, disposition and treatment plan as described except to the extent set forth below. Mr Poole is admitted with hyponatremia and pancreatitis. His sodium has improved and he is tolerating regular diet without any symptoms. Nephrology and GI teams have given discharge recommendations today and he will follow up with them and his PCP outpt. Awake, feeling "great" and back to baseline. He is very much wanting to dc today as he needs to get back to work. He is eating soft food and denies any gi sxs including abd pain, back pain, n/v/d. He has no confusion, lethargy or weakness. Discharge plan was discussed in detail and all questions answered. He can without prompting verbalize changes to diet to help avoid further low Na. He is aware of need for EUS to rule out IPMN and that this could progress to malignancy if not followed. gen- alert, awake,appears stated age cv- reg rate and rhythm, normal s1,s2, no le edema lungs- ctabl, normal resp effort on room air abd- soft, non tender, no guarding, , non distended, + bs neuro- AAOx3, CN grossly intact, strenght intact throughout, moves all ext., no hand tremor Hyponatremia, chronicity cannot be determined as no prior labs and pt unsure suspect acute on chronic hypovolemic-euvolemic hyponatremia multifactorial- medication HCTZ, insensible water loss sweating, intake of free water and beer Overcorrection of Sodium related to NS boluses he received prior to admission to this hospital, slowed with D5W and DDAVP -appreciate nephro recs, cont NaCl tabs on dc, outpt labs and nephro follow up as instructed by nephro Leukocytosis suspect 2/2 pancreatitis, improved, afebrile -ua normal , cT a/p without findings in base of lungs and no s/s of resp infection this admit -pancreatitis plan as below Pancreatitis, suspected etoh related RUQ US reviewed and unremarkable Depsite lipase elevation he is clinically very well appearing on soft diet -gi followed and rec to dc to home, will plan for EUS to assess pancreatic head cyst/possible IPMN. -fu outpt gi etoh abuse, not in withdrawal- stating he will cut way back on beer intake post hospitalization HTN- stop home hctz given hyponatremia, cont lisinopril, outpt fu upon dc Moderate protein-calorie malnutrition r/t acute condition aeb <50% of estimated energy needs for > 5 days, weight loss >2% in 1 week, and muscle/fat wasting as noted. BMI 17.6.- nutriton followed further diagnoses and plan as noted by resident time spent on dc 40 min
[2018-07-07 09:08] LABS: Lipase 1690 Units/L (11-82)
[2018-07-07] MEDS: Nicotine 21 MG PATCH.TD24 TD SCH (09:25)
[2018-07-07] MEDS: Lisinopril 20 MG TABLET PO SCH (09:25)
--- NOTE | 2018-07-07 09:59 | Electrocardiograph Report ---
[place] [id number] Test Date: 2018-07-05 Pat Name: Wes Poole Department: 111 Room: 2NE25 Gender: M Tool Inspector: [facility] : 1960 Requested By: Gee David Order Number: [id number] Reading MD: Carlos Patel Measurements Intervals [place] Rate: 88 P: 85 VA: 194 QRS: -66 QRSD: 80 T: 72 QT: 373 QTc: 419 Interpretive Statements SINUS RHYTHM POSSIBLE LEFT ATRIAL ENLARGEMENT LOW QRS VOLTAGE IN PRECORDIAL LEADS LEFT ANTERIOR FASCICULAR BLOCK POSSIBLE ANTERIOR MYOCARDIAL INFARCTION, OF INDETERMINATE AGE Electronically Signed On 07-07-2018 9:58:09 EDT by Carlos Patel
[2018-07-07 11:38] VITALS: BP 158/94
--- NOTE | 2018-07-07 13:28 | Nephrology Progress Note ---
Date of Encounter: 07/07/18 Time of Encounter: 08:30 - Assessment and Plan (1) Hyponatremia Current Visit: No Status: Acute Patient's sodium level is stable at 129 (was 127 yesterday). He neurological exam today was grossly normal. Vital signs were stable. - Recommend patient to continue taking NaCl supplement tablets at home. - He will need a repeat sodium level again in one week. 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 - Counseled him to rehydrate himself with gatorade when he feels dehydrated. Nephrology will sign off on this patient. (2) Hypertension Current Visit: Yes Status: Chronic He will need avoid hydrochlorothiazide, and at this point it is okay to initiate other antihypertensive agents that do not affect hyponatremia. Qualifiers: Hypertension type: essential hypertension Qualified Code(s): I10 - Essential (primary) hypertension (3) Pancreatitis Current Visit: Yes Status: Acute Management per primary team. Qualifiers: Chronicity: acute Pancreatitis type: alcohol induced Acute pancreatitis complication: unspecified Qualified Code(s): K85.20 - Alcohol induced acute pancreatitis without necrosis or infection (4) History of alcohol use Current Visit: Yes Status: Chronic I counseled him for greater than 50% in counter to cut back on alcohol consumption. He should not drink so much water when he is working outside in [employer] as well, and perhaps choose Gatorade or Powerade, or other solutions that are electrolyte rich. (5) Abdominal pain Current Visit: No Status: Acute Qualifiers: Abdominal location: generalized Qualified Code(s): R10.84 - Generalized abdominal pain (6) Tobacco use Current Visit: Yes Status: Chronic Subjective Principal diagnosis: Hyponatremia with rapid correction initiatlly Interval history: When seen this morning, the patient denied any [place] or dizziness. He denied any numbness or tingling. Denied any light-headedness. Denied any chest pain or SOB. Denied any fever. Denied any abdominal pain, nausea, or vomiting. Objective - Vital Signs Vital signs: Vital Signs Temp Pulse Resp BP Pulse Ox 07/07/18 11:37 98.0 F 72 16 158/94 98 07/07/18 08:01 97.6 F 70 16 154/94 97 07/07/18 04:13 97.8 F 75 16 148/86 07/06/18 23:44 98.8 F 102 18 148/89 07/06/18 21:57 97 07/06/18 20:54 98.1 F 72 16 165/89 97 07/06/18 16:00 98.6 F 94 14 138/81 98 Intake and Output 07/06/18 07/07/18 07/07/18 23:59 07:59 15:59 Intake Total 720 / 1640 480 / 480 Output Total 1580 / 2830 500 / 1775 1275 / 1775 Balance -860 / -1190 -500 / -1295 -795 / -1295 Intake: Oral 720 / 1640 480 / 480 Output: Urine 1580 / 2830 500 / 1775 1275 / 1775 Other: Meal Dinner Breakfast Percent of Meal Consumed 25% 50% Weight 52.6 kg - General Appearance General appearance: Present: well-developed, well-nourished, appears started age EENT: Present: mucous membranes moist Neck: Present: no JVD Respiratory: Present: clear Cardiology: Present: no murmurs, no rub, no gallops, no edema, regular rate, regular rhythm, normal S1, normal S2 Gastrointestinal: Present: normoactive bowel sounds, no tenderness, no guarding, no organomegaly, no masses Integumentary: Present: no rash, warm and dry Neurologic: Present: no focal deficit, alert and oriented x3, reflexes 2+ and symmetric, strength 5/5, CN 3-12 intact Musculoskeletal: Present: no deformities, no erythema, no cyanosis, no clubbing Psychiatric: Present: mood/affect appropriate, cooperative - Lab 07/05/18 04:00 07/07/18 06:14 Most recent lab results 07/07/18 06:14 Calcium 8.4 L Consult Discharge Plan - Plan Additional Instructions: Follow up with your [place] pcp as discussed. You also require GI and Kidney doctor follow up. You will be contacted with appt dates/time Referrals: Olayinka Dominguez DO [Partnered Physician] - NONE,PCP [Primary Care Provider] - Gretta Tompkins MD [Partnered Physician] - Prescriptions: Lisinopril [Zestril] 20 mg PO DAILY #30 tablet
== END 2018-07-07 16:14 | disposition home or self-care (01) | DRG 640 ==
LOC: ICNU 22:04 → SUATTDRO 22:04 → 2NENU 07-04 13:26
PROVIDERS: ADMIT Internal Medicine Nephrology; ATTEND Internal Medicine